=== PATIENT | male | born 1985 | race Caucasian/White ===

== ENCOUNTER → 2017-04-24 | Outpatient (CLI) | payer OTHER ==
[~2017-04-24] MED LIST: CLON0.5T3 PO
--- NOTE | 2017-04-24 12:26 | DIAGNOSTIC IMAGING REPORT ---
ABDOMEN COMPLETE (US) CLINICAL HISTORY: LLQ PAIN, NAUSEA, VOMITING COMPARISON STUDY: No previous studies for comparison. FINDINGS: The pancreas appears normal as visualized. The gallbladder appears sonographically normal. There is borderline increase in hepatic echogenicity. No focal hepatic masses are visualized. There is no intra or extrahepatic biliary ductal dilatation. The common buttock measures 5 mm. The right kidney measures 13 cm in length. The left kidney measures 16.6 cm in length. There is a possible duplex collecting system. The spleen is mildly enlarged measuring 13.7 cm. There is no evidence of abdominal aortic dilatation. IMPRESSION: 1. Borderline increase in hepatic echogenicity. No focal masses identified 2. Mild splenomegaly 3. Ultrasonographically normal gallbladder. No evidence of ductal dilatation 4. No renal masses identified. No evidence of hydronephrosis Electronically signed by: Srikanth Gong M.D. 04/24/2017 12:25 PM Dictated Date/Time: 04/24/2017 12:23 PM
--- NOTE | 2017-04-24 12:36 | DIAGNOSTIC IMAGING REPORT ---
LEFT INGUINAL ULTRASOUND CLINICAL HISTORY: LT GROIN HERNIA left inguinal pain COMPARISON STUDY: No previous studies for comparison. FINDINGS: There is no ultrasonographic evidence of a left inguinal hernia. No left inguinal masses are visualized. IMPRESSION: No ultrasonographic evidence of a left inguinal hernia. Electronically signed by: Srikanth Gong M.D. 04/24/2017 12:35 PM Dictated Date/Time: 04/24/2017 12:35 PM
== END | disposition home or self-care (01) ==
LOC: C.ULTRBC 11:21
PROVIDERS: ATTEND Physician Assistant Medical
DX: R11.2 Nausea with vomiting, unspecified (principal); R10.32 Left lower quadrant pain

== ENCOUNTER 2022-08-15 15:28 | Inpatient (IN) ==
--- NOTE | 2022-08-15 16:00 | Emergency Department Note ---
Impression & Plan Alcohol withdrawal, Opioid use disorder in remission, Transaminitis ED Provider Note NAME: JHOANA MORENO AGE: 36 SEX: M : 1985 ARRIVES VIA: Walk-In INFORMANT: Patient, ED PROVIDER(S): Cory Fan MD CHIEF COMPLAINT: Alcohol abuse, "I want help." MEDICAL DECISION MAKING: Patient did present for alcohol intoxication and wanted inpatient rehab. Patient did have blood work done and IV was established. The patient was loaded with Librium and a CIWA protocol was initiated to avoid withdrawal symptoms. Patient's blood work showed a normal white count H&H and platelet count kidney function is unremarkable. Mild elevation in BSG went away but not DKA. Urinalysis and urine drug screen negative. The patient's kidney function is unremarkable with normal electrolytes. Patient does have mild elevation in LFTs likely secondary to the patient's alcohol abuse but bilirubin is normal and patient has no abdominal pain. TSH normal. Salicylate Tylenol negative. The patient's alcohol is 363 COVID-negative. Lites with the on-call hospitalist service and spoke with the resident physician Dr. Kimbrough and the patient was admitted by Dr. Grullon. Prior /Outside records reviewed: none Differential diagnosis: Alcohol intoxication, toxicologic, infection, hypoglycemia, electrolyte abnormalities, cardiac sources, intracerebral event, neurologic, trauma, as well as other pathologies. Diagnostics, as interpreted by me: ECG: None Cardiac monitoring: An order was placed for continuous cardiac monitoring. The monitor shows a rate of 87 with sinus rhythm. Patient was placed on pulse oximetry Medical decision rules: None Imaging studies: See below HPI: Patient presents from home and states that he wants to stop drinking. The patient typically drinks as much as 1/5 of vodka daily and has done so for the last 2 weeks. The patient states that if he does develop withdrawal symptoms he will begin drinking again. Patient denies any chest pains or shortness of breath. The patient states that he does have an 8-year-old child and believes that he needs to improve his life and his decision making and would like inpatient rehab. Patient denies any SI, HI or AVH. The patient is currently not employed. Patient states that he sleeps too little and his appetite has been okay. PAST MEDICAL HISTORY: See Below PAST SURGICAL HISTORY: See Below SOCIAL HISTORY: See Below HOME MEDICATIONS: See Below ALLERGIES: See Below VITALS: See Below PHYSICAL EXAMINATION: GENERAL: NAD, wearing a mask, non-toxic. Clinically intoxicated. EYE EXAM: Normal conjunctiva. PERRL, no anisocoria and EOM's grossly intact w/o pain. NECK: Supple, no nuchal rigidity, no adenopathy, non-tender. No signs of meningismus. FROM of the neck with good chin to chest and neck extension. No stridor. LUNGS: Clear to auscultation. Normal chest wall mechanics. HEART: NSR, no MRG. ABDOMEN: Abdomen soft, non-tender, normo-active bowel sounds, no masses, no rebound or guarding. BACK: No CVA TTP. SKIN: No rashes and no bruising. UPPER EXTREMITIES: Upper extremities are grossly normal. LOWER EXTREMITIES: Grossly normal, no edema. NEURO EXAM: A&O x3, cranial nerves II-XII grossly intact, normal speech, moves all 4 extremities. Psych: Denies SI HI or AVH. Past Med/Surg History Medical History Complete tear, knee, anterior cruciate ligament (07/09/12) Surgical History S/P knee surgery S/P shoulder surgery Thelma teeth extracted Family History Mother Breast cancer Grandfather (Paternal) Colorectal cancer Denies family history of Ovarian cancer Prostate cancer Myocardial infarction Social History Smoking Status: Heavy tobacco smoker Tobacco Type: Cigarettes Second Hand Exposure: Yes; Do You Dip or Chew Tobacco: Yes; Tobacco Cessation Education Requested by Patient: No Hx Alcohol Use: Yes Alcohol type: hard liquor Hx Substance Use: No Preferred Language: Moldovan Communication Ability: Effective 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 Beliefs That Will Affect Care: None marital status: Current Living Situation: Family Current Living Situation Comment: Lives Girlfriend and 9 yo son current occupational status: unemployed Other Information That Helps Us Care for You: No Feels Safe at Home: Yes Safety Concerns: Feels Safe At This Time Childhood Exposure to Second-Hand Smoke: Yes Dental Care, Regularly: No Physical Activity Frequency: 3-4 Times per Week Seatbelt Use: always Sunscreen Use: No Assistive Devices: None Allergies Allergies Allergy/AdvReac Type Severity Reaction Status Date / Time No Known Allergies Allergy Unverified 04/20/21 08:54 Home Meds Home Medications Medication Instructions Recorded Confirmed Suboxone 2 mg PO BID 08/15/22 08/15/22 Results & Data (ED) Vital Signs Vital Signs - 24 hr 08/15/22 15:42 08/15/22 17:52 Temperature 37.0 C Temperature Source Temporal Artery Scan Pulse Rate 112 H Pulse Rate [Right] 89 Pulse Rhythm [Right] Regular Pulse Strength [Right] Normal Respiratory Rate 19 22 Respiratory Effort / Characteristics Non-Labored Spontaneous Respiratory Depth Normal Blood Pressure [Right Arm] 154/109 H Blood Pressure Mean [Right Arm] 124 Pulse Oximetry 96 97 Oxygen Delivery Method Room Air Sepsis Recent Fever Within 48 Hours No Sepsis New/Unexplained Change in Mental Status N/A Sepsis Action Taken by Nursing No Action Required Home Medications Current Medication List: was personally reviewed by me Laboratory Data Attestation: I reviewed the patient's lab results. 08/16/22 06:04 08/16/22 06:04 Lab Results 08/15/22 08/15/22 08/15/22 Range/Units 15:38 15:38 16:07 WBC 8.47 (4.8-10.8) K/ul RBC 5.36 (4.70-6.10) M/uL Hgb 16.9 (14.0-18.0) g/dl Hct 47.3 (42.0-52.0) % MCV 88.2 (80.0-100.0) fL MCH 31.5 (25.0-34.0) pg MCHC 35.7 (32.0-36.0) g/dL RDW Std Deviation 41.8 (36.4-46.3) fL RDW Coeff of Vanesa 13.0 (11.5-14.5) % Plt Count 268 (130-400) K/uL MPV 8.9 L (9.4-12.4) fL Immature Gran % (Auto) 0.4 % Neut % (Auto) 65.7 % Lymph % (Auto) 28.0 % Whitley % (Auto) 5.3 % Eos % (Auto) 0.0 % Baso % (Auto) 0.6 % Neut # (Auto) 5.57 (1.40-6.50) K/uL Lymph # (Auto) 2.37 (1.2-3.4) K/uL Whitley # (Auto) 0.45 (0.11-0.59) K/uL Eos # (Auto) 0.00 (0-0.50) K/uL Baso # (Auto) 0.05 (0-0.2) K/uL Immature Gran # (Auto) 0.03 (0.01-0.20) K/uL PT (9.0-12.0) Seconds INR (0.9-1.1) Sodium (136-145) mmol/L Potassium (3.5-5.1) mmol/L Chloride (98-107) mmol/L Carbon Dioxide (21-32) mmol/L Anion Gap (3-11) BUN (6-23) mg/dl Creatinine (0.6-1.4) mg/dl Est Cr Clr Drug Dosing ml/min Est GFR ( Amer) ml/min Est GFR (Non-Af Amer) ml/min BUN/Creatinine Ratio (10-20) Glucose (70-99(Fasting)) mg/dl Calcium (8.5-10.1) mg/dl Total Bilirubin (0.2-1.0) mg/dl AST (13-39) U/L ALT (7-52) U/L Alkaline Phosphatase (34-104) U/L Total Protein (6.0-8.3) gm/dl Albumin (3.4-5.0) gm/dl Globulin (2.5-4.0) gm/dl Albumin/Globulin Ratio (0.9-2) TSH (0.300-4.500) uIu/ml Urine Color Yellow Urine Appearance Clear (Clear) Urine pH 6.5 (4.5-7.5) Ur Specific Chambers 1.013 (1.000-1.030) Urine Protein 2+ H (Negative) Urine Glucose (UA) Negative (Negative) Urine Ketones Trace H (Negative) Urine Blood Trace H (Negative) Urine Nitrite Negative (Negative) Urine Bilirubin Negative (Negative) Urine Urobilinogen Negative (Negative) Ur Leukocyte Esterase Negative (Negative) Urine WBC (Auto) 1-5 (0-5) /hpf Urine RBC (Auto) 0-4 (0-4) /hpf U Hyaline Cast (Auto) 0 (0-5) /lpf U Epithel Cells (Auto) 5-10 H (0-5) /lpf Urine Bacteria (Auto) Negative (Negative) Salicylates (3.0-30) mg/dl Urine Opiates Screen Neg (Neg) Ur Methadone, Qual Neg (Neg) Acetaminophen (10-30) ug/ml Urine Barbiturates Neg (Neg) Ur Phencyclidine (PCP) Neg (Neg) U Amphetamin/Meth Scrn Neg (Neg) MDMA (Ecstasy) Screen Neg (Neg) U Benzodiazepines Scrn Neg (Neg) Ur Cocaine Metabolite Neg (Neg) U Marijuana (THC) Screen Neg (Neg) Ethyl Alcohol mg/dL (<10.0) mg/dl SARS-CoV-2, RNA, NAAT (NEGATIVE) 08/15/22 08/15/22 08/15/22 Range/Units 16:07 16:07 16:07 WBC (4.8-10.8) K/ul RBC (4.70-6.10) M/uL Hgb (14.0-18.0) g/dl Hct (42.0-52.0) % MCV (80.0-100.0) fL MCH (25.0-34.0) pg MCHC (32.0-36.0) g/dL RDW Std Deviation (36.4-46.3) fL RDW Coeff of Vanesa (11.5-14.5) % Plt Count (130-400) K/uL MPV (9.4-12.4) fL Immature Gran % (Auto) % Neut % (Auto) % Lymph % (Auto) % Whitley % (Auto) % Eos % (Auto) % Baso % (Auto) % Neut # (Auto) (1.40-6.50) K/uL Lymph # (Auto) (1.2-3.4) K/uL Whitley # (Auto) (0.11-0.59) K/uL Eos # (Auto) (0-0.50) K/uL Baso # (Auto) (0-0.2) K/uL Immature Gran # (Auto) (0.01-0.20) K/uL PT (9.0-12.0) Seconds INR (0.9-1.1) Sodium 140 (136-145) mmol/L Potassium 3.9 (3.5-5.1) mmol/L Chloride 102 (98-107) mmol/L Carbon Dioxide 28 (21-32) mmol/L Anion Gap 10 (3-11) BUN 10 (6-23) mg/dl Creatinine 0.94 (0.6-1.4) mg/dl Est Cr Clr Drug Dosing 160.2 ml/min Est GFR ( Amer) 118.7 ml/min Est GFR (Non-Af Amer) 102.4 ml/min BUN/Creatinine Ratio 10.6 (10-20) Glucose 129 H (70-99(Fasting)) mg/dl Calcium 8.7 (8.5-10.1) mg/dl Total Bilirubin 0.7 (0.2-1.0) mg/dl AST 151 H (13-39) U/L ALT 106 H (7-52) U/L Alkaline Phosphatase 132 H (34-104) U/L Total Protein 8.7 H (6.0-8.3) gm/dl Albumin 4.7 (3.4-5.0) gm/dl Globulin 4.0 (2.5-4.0) gm/dl Albumin/Globulin Ratio 1.2 (0.9-2) TSH 0.805 (0.300-4.500) uIu/ml Urine Color Urine Appearance (Clear) Urine pH (4.5-7.5) Ur Specific Chambers (1.000-1.030) Urine Protein (Negative) Urine Glucose (UA) (Negative) Urine Ketones (Negative) Urine Blood (Negative) Urine Nitrite (Negative) Urine Bilirubin (Negative) Urine Urobilinogen (Negative) Ur Leukocyte Esterase (Negative) Urine WBC (Auto) (0-5) /hpf Urine RBC (Auto) (0-4) /hpf U Hyaline Cast (Auto) (0-5) /lpf U Epithel Cells (Auto) (0-5) /lpf Urine Bacteria (Auto) (Negative) Salicylates < 3.0 L (3.0-30) mg/dl Urine Opiates Screen (Neg) Ur Methadone, Qual (Neg) Acetaminophen < 3 L (10-30) ug/ml Urine Barbiturates (Neg) Ur Phencyclidine (PCP) (Neg) U Amphetamin/Meth Scrn (Neg) MDMA (Ecstasy) Screen (Neg) U Benzodiazepines Scrn (Neg) Ur Cocaine Metabolite (Neg) U Marijuana (THC) Screen (Neg) Ethyl Alcohol mg/dL (<10.0) mg/dl SARS-CoV-2, RNA, NAAT (NEGATIVE) 08/15/22 08/15/22 08/15/22 Range/Units 16:07 16:07 16:28 WBC (4.8-10.8) K/ul RBC (4.70-6.10) M/uL Hgb (14.0-18.0) g/dl Hct (42.0-52.0) % MCV (80.0-100.0) fL MCH (25.0-34.0) pg MCHC (32.0-36.0) g/dL RDW Std Deviation (36.4-46.3) fL RDW Coeff of Vanesa (11.5-14.5) % Plt Count (130-400) K/uL MPV (9.4-12.4) fL Immature Gran % (Auto) % Neut % (Auto) % Lymph % (Auto) % Whitley % (Auto) % Eos % (Auto) % Baso % (Auto) % Neut # (Auto) (1.40-6.50) K/uL Lymph # (Auto) (1.2-3.4) K/uL Whitley # (Auto) (0.11-0.59) K/uL Eos # (Auto) (0-0.50) K/uL Baso # (Auto) (0-0.2) K/uL Immature Gran # (Auto) (0.01-0.20) K/uL PT 11.4 (9.0-12.0) Seconds INR 1.1 (0.9-1.1) Sodium (136-145) mmol/L Potassium (3.5-5.1) mmol/L Chloride (98-107) mmol/L Carbon Dioxide (21-32) mmol/L Anion Gap (3-11) BUN (6-23) mg/dl Creatinine (0.6-1.4) mg/dl Est Cr Clr Drug Dosing ml/min Est GFR ( Amer) ml/min Est GFR (Non-Af Amer) ml/min BUN/Creatinine Ratio (10-20) Glucose (70-99(Fasting)) mg/dl Calcium (8.5-10.1) mg/dl Total Bilirubin (0.2-1.0) mg/dl AST (13-39) U/L ALT (7-52) U/L Alkaline Phosphatase (34-104) U/L Total Protein (6.0-8.3) gm/dl Albumin (3.4-5.0) gm/dl Globulin (2.5-4.0) gm/dl Albumin/Globulin Ratio (0.9-2) TSH (0.300-4.500) uIu/ml Urine Color Urine Appearance (Clear) Urine pH (4.5-7.5) Ur Specific Chambers (1.000-1.030) Urine Protein (Negative) Urine Glucose (UA) (Negative) Urine Ketones (Negative) Urine Blood (Negative) Urine Nitrite (Negative) Urine Bilirubin (Negative) Urine Urobilinogen (Negative) Ur Leukocyte Esterase (Negative) Urine WBC (Auto) (0-5) /hpf Urine RBC (Auto) (0-4) /hpf U Hyaline Cast (Auto) (0-5) /lpf U Epithel Cells (Auto) (0-5) /lpf Urine Bacteria (Auto) (Negative) Salicylates (3.0-30) mg/dl Urine Opiates Screen (Neg) Ur Methadone, Qual (Neg) Acetaminophen (10-30) ug/ml Urine Barbiturates (Neg) Ur Phencyclidine (PCP) (Neg) U Amphetamin/Meth Scrn (Neg) MDMA (Ecstasy) Screen (Neg) U Benzodiazepines Scrn (Neg) Ur Cocaine Metabolite (Neg) U Marijuana (THC) Screen (Neg) Ethyl Alcohol mg/dL 363.0 H (<10.0) mg/dl SARS-CoV-2, RNA, NAAT NEGATIVE (NEGATIVE) Administered Medications Buprenorphine/Naloxone (Buprenorphine/Naloxone 8/2 Mg Tab) 0.25 tab SL BID YANNA Stop: 09/14/22 21:29 Last Admin: 08/16/22 08:10 Dose: 0.25 tab Documented By: Admin: 08/15/22 22:02 Dose: 0.25 tab Documented By: CJC Chlordiazepoxide HCl (Chlordiazepoxide Hcl 25 Mg Cap) 50 mg PO Q6H YANNA; Taper Stop: 08/19/22 11:59 Last Admin: 08/16/22 12:18 Dose: 50 mg Documented By: CEASAR Folic Acid 1 mg/ Syringe 10 mls @ 5 mls/min IV QAM YANNA Stop: 09/15/22 08:59 Last Admin: 08/16/22 08:03 Dose: 5 mls/min Documented By: CEASAR Pantoprazole Sodium 40 mg/ (Syringe) 10 mls @ 5 mls/min IV DAILY@1100 YANNA Stop: 09/15/22 10:59 Last Admin: 08/16/22 11:27 Dose: 5 mls/min Documented By: CEASAR Thiamine HCl 200 mg/ Sodium (Chloride) 52 mls @ 210 mls/hr IV QAM [facility] Stop: 09/15/22 08:59 Last Infusion: 08/16/22 08:55 Dose: 0 mls/hr Documented By: Admin: 08/16/22 08:13 Dose: 210 mls/hr Documented By: CEASAR Lorazepam (Lorazepam 2 Mg/1 Ml Vial) 2 mg IV UD PRN; Protocol PRN Reason: EtOH Withdrawal AWSS Score 8,9 Stop: 09/14/22 16:16 Last Admin: 08/16/22 08:00 Dose: 2 mg Documented By: Admin: 08/16/22 05:40 Dose: 2 mg Documented By: [facility] Admin: 08/16/22 03:06 Dose: 2 mg Documented By: [facility] Admin: 08/16/22 01:53 Dose: 2 mg Documented By: [facility] Admin: 08/16/22 00:42 Dose: 2 mg Documented By: [facility] Admin: 08/15/22 23:30 Dose: 2 mg Documented By: [facility] Admin: 08/15/22 22:14 Dose: 2 mg Documented By: [facility] Admin: 08/15/22 20:55 Dose: 2 mg Documented By: TREVOR Lorazepam (Lorazepam 2 Mg/1 Ml Vial) 1 mg IV UD PRN; Protocol PRN Reason: EtOH Withdrawal AWSS Score 6,7 Stop: 09/14/22 16:16 Last Admin: 08/16/22 11:27 Dose: 1 mg Documented By: Admin: 08/16/22 09:02 Dose: 1 mg Documented By: Admin: 08/15/22 17:26 Dose: 1 mg Documented By: AM Miscellaneous (Remove Nicoderm Patch) 1 each N/A DAILY@0859 [facility] Stop: 09/15/22 08:58 Last Admin: 08/16/22 08:13 Dose: 1 each Documented By: CEASAR Nicotine (Nicotine 7 Mg/24 Hr Tdsy) 7 mg TD QAM [facility] Stop: 09/14/22 19:26 Last Admin: 08/16/22 08:03 Dose: 7 mg Documented By: Admin: 08/15/22 20:09 Dose: 7 mg Documented By: SELENA Ondansetron HCl (Ondansetron Inj 2 Mg/Ml 2 Ml Vial) 4 mg IV Q6H PRN PRN Reason: Nausea And Vomiting Stop: 09/15/22 05:05 Last Admin: 08/16/22 05:40 Dose: 4 mg Documented By: TREVOR Discontinued Medications Chlordiazepoxide HCl (Chlordiazepoxide Hcl 25 Mg Cap) 50 mg PO NOW ONE Stop: 08/15/22 16:18 Last Admin: 08/15/22 16:43 Dose: 50 mg Documented By: AM Multivitamins 10 ml/ Thiamine HCl 100 mg/ Folic Acid 1 mg/Sodium Chloride 1,011.2 mls @ 500 mls/hr IV .Q2H2M ONE Stop: 08/15/22 18:18 Last Infusion: 08/15/22 19:04 Dose: 0 mls/hr Documented By: Admin: 08/15/22 16:43 Dose: 500 mls/hr Documented By: AM Lactated Ringer's (Lr) 1,000 mls @ 125 mls/hr IV .Q8H [facility] Stop: 08/16/22 11:26 Last Admin: 08/16/22 04:29 Dose: 125 mls/hr Documented By: Infusion: 08/16/22 04:11 Dose: 125 mls/hr Documented By: Admin: 08/15/22 20:11 Dose: 125 mls/hr Documented By: SELENA Prochlorperazine 5 mg/ Syringe 5 mls @ 5 mls/min IV ONE ONE Stop: 08/16/22 09:16 Last Admin: 08/16/22 10:22 Dose: 5 mls/min Documented By: CEASAR Lorazepam (Lorazepam 2 Mg/1 Ml Vial) 1 mg IV ONE PRN; Protocol PRN Reason: EtoH Withdrawal AWSS 6,7,8,9,10 Last Admin: 08/15/22 19:30 Dose: 1 mg Documented By: SELENA Discharge Plan Visit Data Chief Complaint: Mental Health Evaluation Stated Complaint: MENTAL EVALUATION ED Provider: Cory Fan Discharge Problem: Alcohol withdrawal, Opioid use disorder in remission, Transaminitis Patient Disposition: Admitted As Inpatient Discharge Instructions Interventions: ED Discharge Assessment Last Done: 08/15/22 19:27
[2022-08-15] MEDS ORDERED: LORazepam 2 MG/1 ML VIAL IV PRN ×2 (16:17)
[2022-08-15] MEDS ORDERED: Ativan IV Alcohol Withdrawal--Active Protocol IV PRN (16:17)
[2022-08-15] MEDS ORDERED: MULTI-VITAMIN INFUSION 10 ML, THIAMINE HCL 100 MG, FOLIC ACID 1 MG in SODIUM CHLORIDE 0... IV ONE (16:17)
[2022-08-15] MEDS ORDERED: chlordiazePOXIDE HCl 25 MG CAP PO ONE (16:17)
[2022-08-15 16:31] LABS: Appearance Urine Clear (Clear); Bacteria Urine Automated Negative (Negative); Bilirubin Urine Negative (Negative); Blood Urine Trace (Negative); Cast Urine Automated 0 /lpf (0-5); Color Urine Yellow; Glucose Urine UA Negative (Negative); Ketones Urine Trace (Negative); Leukocyte Esterase Urine Negative (Negative); Nitrite Urine Negative (Negative); Protein Urine 2+ (Negative); RBC Urine Automated 0-4 /hpf (0-4); Specific Gravity Urine 1.013 (1.000-1.030); Urobilinogen Urine Negative (Negative); pH Urine 6.5 (4.5-7.5)
[2022-08-15 16:41] LABS: Basophils # (auto) 0.05 K/uL (0-0.2); Basophils % (auto) 0.6 %; Hematocrit (blood only) 47.3 % (42.0-52.0); Hemoglobin 16.9 g/dl (14.0-18.0); Immature Granulocytes # (auto) 0.03 K/uL (0.01-0.20); Immature Granulocytes % (auto) 0.4 %; Lymphocytes # (auto) 2.37 K/uL (1.2-3.4); Mean Corpuscular Hemoglobin 31.5 pg (25.0-34.0); Mean Corpuscular Hgb Conc 35.7 g/dL (32.0-36.0); Mean Corpuscular Volume 88.2 fL (80.0-100.0); Mean Platelet Volume 8.9 fL (9.4-12.4); Monocytes # (auto) 0.45 K/uL (0.11-0.59); Monocytes % (auto) 5.3 %; Neutrophils # (auto) 5.57 K/uL (1.40-6.50); Neutrophils % (auto) 65.7 %; Platelet Count 268 K/uL (130-400); RDW Standard Deviation 41.8 fL (36.4-46.3); Red Blood Count 5.36 M/uL (4.70-6.10); White Blood Count 8.47 K/ul (4.8-10.8)
[2022-08-15 16:55] LABS: Acetaminophen < 3 ug/ml (10-30); Salicylate < 3.0 mg/dl (3.0-30)
[2022-08-15 16:58] LABS: Albumin Globulin Ratio 1.2 (0.9-2); Albumin Level 4.7 gm/dl (3.4-5.0); BUN Creatinine Ratio 10.6 (10-20); Bilirubin,Total 0.7 mg/dl (0.2-1.0); Calcium 8.7 mg/dl (8.5-10.1); Creatinine Clr Calc Pharmacy 160.2 ml/min; Est GFR (African American) 118.7 ml/min; Est GFR (Non-African American) 102.4 ml/min; Potassium 3.9 mmol/L (3.5-5.1); Total Protein 8.7 gm/dl (6.0-8.3)
[2022-08-15 17:08] LABS: Amphetamines+Metham, Urine Neg (Neg); Barbiturates, Urine Neg (Neg); Benzodiazepine, Urine Neg (Neg); Cocaine, Urine Neg (Neg); MDMA (Ecstacy), Urine Neg (Neg); Methadone, Urine Neg (Neg); Opiate, Urine Neg (Neg); Phencyclidine, Urine Neg (Neg)
[2022-08-15] MEDS: LORazepam 2 MG/1 ML VIAL IV PRN ×4 (17:26→23:30)
--- NOTE | 2022-08-15 18:10 | History & Physical Report ---
Date of Service August 15, 2022 Assessment & Plan (1) Alcohol withdrawal: Plan: This is a 36-year-old male with prior history of OUD on Suboxone (2mg qAM/qPM) and self-reported history of anxiety/depression who presents to [facility] for disordered alcohol use and anticipated management of alcohol withdrawal. His last drink was ~1200 on 08/15/22. Alcohol Use Disorder - Risk for Alcohol Withdrawal -- Last drink on 08/15 at 1200 Reportedly new history in the context of significant life stressors, has not withdrawn before Reported consuming approximately 750 cc of vodka daily x 1 mo. Denies persisten t alcohol use prior, denies alcohol withdrawal history Lorazepam IV UD per AWSS protocol Hold on scheduling agents Lactated Ringer's x 2 L Folate and thiamine scheduled Protonix 40mg daily Appreciate case management assistance once acute issues have stabilized -- at time of admission, patient NOT interested in inpatient rehab Consider initiating acamprosate pending further patient conversation - noted that pt is on Suboxone Consider psychiatric consult / initiation of depression/anxiety treatment once acute issues have stabilized (2) Transaminitis: Plan: Transaminitis -- suspect mild alcoholic hepatitis No reported history of liver disease Ethyl alcohol 363 on arrival ; LFTs AST 151 / ALT 106 / ALP 132 / Alb 4.7 / INR 1.1 / TBili 0.7 ; Others- Na 140 / Plt 268 / MCV 88.2 -- Maddrey Score: 4.8 (good prognosis); hold on steroids -- Benign abdominal exam Continue IVF Monitor on daily labs If no improvement- US and serologies to evaluate for secondary causes (3) Opioid use disorder in remission: Plan: Opioid use disorder in remission Reportedly no use within the last 10 years Suboxone 8/2mg 1 tab daily RX'd by Dr. Ted Martinez per External RX history- however, patient reports taking 0.25mg tab b.i.d. (0.5 tab total daily) - entered as patient describes, will req outpatient f/u (4) Tobacco abuse: Plan: Tobacco use Consumes approximately 1 pack/day cigarettes Nicotine patch Plan Code: Full Dispo: MST initially, transition to MS when appropriate Prophylaxis: SCDs Diet: Regular as tolerated History of Present Illness Primary Care Provider: NO PCP This is a 36-year-old male with prior history of OUD on Suboxone (2mg qAM/qPM) who presents to [facility] for disordered alcohol use and management of alcohol withdrawal. Patient says that approximately 1 month ago, his mother was on life support at [facility]. This caused significant emotional trauma to him and his family. Since this time, he reports consuming about 750 cc of vodka daily X 1 month. He has still been able to eat and drink okay. Over the last several days, he has reflected significantly on his life and the recent trauma his family went throughas well as his 8-year-old son, who he cares deeply forand he reports wanting to do the right thing and to get help for his alcohol use. On the day of admission, he reports consuming about 375 cc, with last drink being around noon. He says prior to this time, he never had a persistent issue with alcohol use. He would use it socially, but not on a regular basis or to the volume that he is doing now. He does endorse a prior history of opioid use disorder for which she is taking Suboxone 2 mg twice dailyhe denies any use within the last 10 years. He denies any use of any other substances. He does report using approximately 1 pack/day of cigarettes. He denies any long-term medical issues. He does say, however, he has personally struggled with anxiety and depressionalthough he has never formally talked a bout this with a medical professional. He believes that these are somewhat related, in conjunction with his mother's ailments, as to why he started drinking. In the ED, patient was found to be tachycardic to 112 and hypertensive to 150/100 with normal temperature, respiratory rate 22. Admission labs reveal platelet count 268, sodium 140, BUN 10/creatinine 0.94, blood sugar 129, AST 151, ALT 106, ALP 132. Urine demonstrated trace ketones. UDS demonstrated blood alcohol level 363. He was given Librium 50 mg and lorazepam. ---- This documentation was created utilizing dictation software. As such, syntax, grammatical, and word-choice errors may be present. Notes are screened prior to submission in an attempt to reduce these errors. If there are any questions or concerns, please contact the author directly for clarification. Allergies Allergy/AdvReac Type Severity Reaction Status Date / Time No Known Allergies Allergy Unverified 04/20/21 08:54 Home Medications Medication Instructions Recorded Confirmed Type Suboxone 2 mg PO BID 08/15/22 08/15/22 History Past Med/Surg History Medical History Complete tear, knee, anterior cruciate ligament (07/09/12) Surgical History S/P knee surgery S/P shoulder surgery [place] teeth extracted Family History Mother Breast cancer Grandfather (Paternal) Colorectal cancer Denies family history of Ovarian cancer Prostate cancer Myocardial infarction Social History Smoking Status: Current every day smoker Tobacco Type: Cigarettes Second Hand Exposure: No; Hx Alcohol Use: Yes Hx Substance Use: Yes Preferred Language: Welsh marital status: current occupational status: unemployed Feels Safe at Home: Yes Childhood Exposure to Second-Hand Smoke: Yes Dental Care, Regularly: No Physical Activity Frequency: 3-4 Times per Week Seatbelt Use: always Sunscreen Use: No Review of Systems Review of Systems: as per HPI Physical Exam Physical Exam: General: 36-year old male who is alert, oriented, and is mild distress while discussing. HEENT: NCAT. - Eyes - Sclera are white, anicteric, and without injection. - Mouth - MMM - Neck - supple, no appreciable JVD Cardiac: Normal rate and regular rhythm; S1 and S2 present with no murmurs, rubs, or gallops. Pulmonary: Good respiratory effort with symmetric expansion of the chest. No use of accessory muscles. Lungs were clear to auscultation bilaterally with no crackles or wheezes. Abdominal: Normoactive bowel sounds. Abdomen was soft, nondistended, and non- tender to palpation. Queen's negative. Extremities: Upper and lower extremities are warm and well perfused. No peripheral edema in the lower extremities bilaterally Psych: Well-developed, well-nourished, appropriately dressed for occasion. Behavior is cooperative and appropriate. Mood is "really not good and I want to do the right thing." Affect is consistent with mood. Insight seems appropriate to the current situation. Denies SI. Results & Data Results & Data ([facility]) Vital Signs (Past 12 Hours) Vital Signs Temp Pulse Pulse Resp BP Pulse Ox O2 Del Method 08/15/22 17:52 89 22 154/109 H 97 08/15/22 15:42 37.0 C 112 H 19 96 Room Air Resident Activity Tracking Resident Involvement: Resident Care Provided Care Provided: Adult Hospital Medicine
[2022-08-15 18:44] LABS: INR 1.1 (0.9-1.1); Prothrombin Time 11.4 Seconds (9.0-12.0)
[2022-08-15] MEDS: NICOTINE 7 MG/24 HR TDSY TD SCH (20:09)
[2022-08-15] MEDS: LACTATED RINGER'S 1,000 ML IV SCH (20:11)
[2022-08-15] MEDS ORDERED: BUPRENORPHINE/NALOXONE 8/2 MG TAB SL SCH (21:20)
[2022-08-15] MEDS: BUPRENORPHINE/NALOXONE 8/2 MG TAB SL SCH (22:02)
--- NOTE | 2022-08-16 00:34 | Billing Data ---
Date of Service August 15, 2022 Coding Level of Care Code 21008 INT INP/OBS CARE
[2022-08-16] MEDS: LORazepam 2 MG/1 ML VIAL IV PRN ×9 (00:42→20:08)
[2022-08-16] MEDS: LACTATED RINGER'S 1,000 ML IV SCH (04:29)
[2022-08-16] MEDS: ONDANSETRON INJ 2 MG/ML 2 ML VIAL IV PRN (05:40)
[2022-08-16 06:23] LABS: Basophils # (auto) 0.02 K/uL (0-0.2); Basophils % (auto) 0.3 %; Eosinophils # (auto) 0.02 K/uL (0-0.50); Eosinophils % (auto) 0.3 %; Hematocrit (blood only) 42.1 % (42.0-52.0); Immature Granulocytes # (auto) 0.03 K/uL (0.01-0.20); Immature Granulocytes % (auto) 0.4 %; Lymphocytes # (auto) 2.03 K/uL (1.2-3.4); Lymphocytes % (auto) 27.8 %; Mean Corpuscular Hemoglobin 31.8 pg (25.0-34.0); Mean Corpuscular Hgb Conc 35.6 g/dL (32.0-36.0); Mean Corpuscular Volume 89.4 fL (80.0-100.0); Mean Platelet Volume 8.9 fL (9.4-12.4); Monocytes # (auto) 0.71 K/uL (0.11-0.59); Monocytes % (auto) 9.7 %; Neutrophils # (auto) 4.48 K/uL (1.40-6.50); Neutrophils % (auto) 61.5 %; Platelet Count 180 K/uL (130-400); RDW Coefficient of Variation 12.7 % (11.5-14.5); RDW Standard Deviation 41.5 fL (36.4-46.3); Red Blood Count 4.71 M/uL (4.70-6.10); White Blood Count 7.29 K/ul (4.8-10.8)
[2022-08-16] MEDS: FOLIC ACID 1 MG in SYRINGE 9.8 ML IV SCH (08:03)
[2022-08-16] MEDS: NICOTINE 7 MG/24 HR TDSY TD SCH (08:03)
[2022-08-16] MEDS: BUPRENORPHINE/NALOXONE 8/2 MG TAB SL SCH ×2 (08:10→21:53)
[2022-08-16] MEDS: THIAMINE HCL 200 MG in SODIUM CHLORIDE 0.9% 50 ML IV SCH (08:13)
[2022-08-16 08:14] LABS: Albumin Globulin Ratio 1.2 (0.9-2); BUN Creatinine Ratio 12.2 (10-20); Bilirubin,Total 0.9 mg/dl (0.2-1.0); Calcium 8.2 mg/dl (8.5-10.1); Est GFR (Non-African American) 112.2 ml/min; Globulin 3.3 gm/dl (2.5-4.0); Potassium 3.7 mmol/L (3.5-5.1); Total Protein 7.3 gm/dl (6.0-8.3)
[2022-08-16] MEDS ORDERED: THIAMINE HCL 200 MG in SYRINGE 9 ML IV SCH (09:00)
[2022-08-16] MEDS ORDERED: PROCHLORPERAZINE 5 MG in SYRINGE 4 ML IV ONE (09:15)
[2022-08-16] MEDS: PANTOprazole 40 MG in SYRINGE 0 ML IV SCH (11:27)
[2022-08-16] MEDS ORDERED: chlordiazePOXIDE ALCOHOL WITHDRAWL 50MG PO STA (11:59)
[2022-08-16] MEDS: chlordiazePOXIDE HCl 25 MG CAP PO SCH ×3 (12:18→23:50)
[2022-08-16] MEDS ORDERED: LORazepam 2 MG/1 ML VIAL IV STA (17:14)
--- NOTE | 2022-08-16 22:40 | Hospitalist Progress Note ---
Date of Service August 16, 2022 Assessment & Plan (1) Alcohol withdrawal: Plan: Patient admitted for alcohol withdrawal. Patient is interested in quitting alcohol. Patient currently scoring high on AWSS. Will order librium taper and will monitor. (2) Opioid use disorder in remission: Plan: Opioid use disorder in remission Reportedly no use within the last 10 years Suboxone 8/2mg 1 tab daily RX'd by Dr. Ted Martinez per External RX history- however, patient reports taking 0.25mg tab b.i.d. (0.5 tab total daily) - entered as patient describes, will req outpatient f/u (4) Tobacco abuse: (3) Tobacco abuse: Plan: ordered nicotine patch (4) Transaminitis: Plan: suspect mild alcoholic hepatitis No reported history of liver disease Ethyl alcohol 363 on arrival ; LFTs AST 151 / ALT 106 / ALP 132 / Alb 4.7 / INR 1.1 / TBili 0.7 ; Others- Na 140 / Plt 268 / MCV 88.2 -- Maddrey Score: 4.8 (good prognosis); hold on steroids -- Benign abdominal exam Continue IVF Monitor on daily labs If no improvement- US and serologies to evaluate for secondary causes Admission and Anticipated Discharge Date Admission Date: August 15, 2022 Subjective Patient reports feeling anxious. No hallucinations Review of Systems Review of Systems: All systems reviewed & are unremarkable except as noted in HPI & below Physical Exam Physical Exam: General: 36-year old male appears mildly anxious HEENT: NCAT. - Eyes - Sclera are white, anicteric, and without injection. - Mouth - MMM - Neck - supple, no appreciable JVD Cardiac: Normal rate and regular rhythm; S1 and S2 present with no murmurs, rubs, or gallops. Pulmonary: Good respiratory effort with symmetric expansion of the chest. No use of accessory muscles. Lungs were clear to auscultation bilaterally with no crackles or wheezes. Abdominal: Normoactive bowel sounds. Abdomen was soft, nondistended, and non- tender to palpation. Queen's negative. Extremities: Upper and lower extremities are warm and well perfused. No peripheral edema in the lower extremities bilaterally Psych: Well-developed, well-nourished, appropriately dressed for occasion. Behavior is cooperative and appropriate. Results & Data Results & Data ([facility]) Vital Signs (Past 12 Hours) Vital Signs Temp Pulse Pulse Resp BP BP Pulse Ox 02/15/23 22:01 36.4 C L 106 H 18 166/91 H 95 08/16/22 19:51 36.4 C L 96 H 16 141/103 H 94 08/16/22 17:25 36.7 C 117 H 18 149/109 H 92 08/16/22 14:20 101 H 08/16/22 15:14 36.7 C 100 H 18 157/105 H 95 08/16/22 14:13 36.6 C 98 H 18 159/96 H 93 08/16/22 11:23 36.6 C 105 H 18 156/85 H 90 O2 Del Method 08/16/22 22:01 Room Air 08/16/22 19:51 Room Air 08/16/22 17:25 Room Air 08/16/22 14:20 08/16/22 15:14 Room Air 08/16/22 14:13 Room Air 08/16/22 11:23 Room Air PG Care Time/CCT Total # of Minutes Spent Total Time Spent with Patient: Total time spent is greater than 50% in coordination of care (as documented) at patient's floor/unit and/or counseling patient: Coding Level of Care Code 89091 SUB INP/OBS CARE 3/50MIN Diagnoses Alcohol withdrawal F10.930 Complication of substance-induced condition: uncomplicated Opioid use disorder in remission F11.91 Tobacco abuse Z72.0 Transaminitis R74.01 (1) Alcohol withdrawal Complication of substance-induced condition: uncomplicated Qualified Code(s): F10.930 - Alcohol use, unspecified with withdrawal, uncomplicated
[2022-08-17] MEDS: LORazepam 2 MG/1 ML VIAL IV PRN ×9 (00:20→23:43)
[2022-08-17] MEDS: chlordiazePOXIDE HCl 25 MG CAP PO SCH ×3 (05:21→19:32)
[2022-08-17] MEDS: PANTOprazole 40 MG in SYRINGE 0 ML IV SCH (07:37)
[2022-08-17] MEDS: FOLIC ACID 1 MG in SYRINGE 9.8 ML IV SCH (07:37)
[2022-08-17] MEDS: THIAMINE HCL 200 MG in SODIUM CHLORIDE 0.9% 50 ML IV SCH (07:37)
[2022-08-17] MEDS: NICOTINE 7 MG/24 HR TDSY TD SCH (07:37)
[2022-08-17] MEDS: BUPRENORPHINE/NALOXONE 8/2 MG TAB SL SCH ×2 (07:49→20:42)
[2022-08-17] MEDS ORDERED: LORazepam 2 MG/1 ML VIAL IV STA (18:37)
--- NOTE | 2022-08-17 21:24 | Hospitalist Progress Note ---
Date of Service August 17, 2022 Assessment & Plan (1) Alcohol withdrawal: Plan: Patient admitted for alcohol withdrawal. Patient is interested in quitting alcohol. Patient currently scoring high on AWSS. On librium taper which was started on 08/16 Patinet has required intermittent dosing of ativan (2) Opioid use disorder in remission: Plan: Opioid use disorder in remission Reportedly no use within the last 10 years Suboxone 8/2mg 1 tab daily RX'd by Dr. Ted Martinez per External RX history- however, patient reports taking 0.25mg tab b.i.d. (0.5 tab total daily) - entered as patient describes, will req outpatient f/u (3) Tobacco abuse: Plan: ordered nicotine patch increased dose for 07/18 to 21 mg (4) Transaminitis: Plan: suspect mild alcoholic hepatitis No reported history of liver disease Ethyl alcohol 363 on arrival ; LFTs AST 151 / ALT 106 / ALP 132 / Alb 4.7 / INR 1.1 / TBili 0.7 ; Others- Na 140 / Plt 268 / MCV 88.2 -- Maddrey Score: 4.8 (good prognosis); hold on steroids -- Benign abdominal exam Continue IVF Monitor on daily labs If no improvement- US and serologies to evaluate for secondary causes Admission and Anticipated Discharge Date Admission Date: August 15, 2022 Subjective 36 yo male reports having anxiety. Earlier in the day, patient left his room to smoke. Patient agreed to try a larger dose of a nicotine patch once asked. Patient is also worried about his mother who is coming to the hospital via ambulance as she is sick Review of Systems Review of Systems: All systems reviewed & are unremarkable except as noted in HPI & below Physical Exam Physical Exam: General: 36-year old male appears mildly anxious HEENT: NCAT. - Eyes - Sclera are white, anicteric, and without injection. - Mouth - MMM - Neck - supple, no appreciable JVD Cardiac: Normal rate and regular rhythm; S1 and S2 present with no murmurs, rubs, or gallops. Pulmonary: Good respiratory effort with symmetric expansion of the chest. No use of accessory muscles. Lungs were clear to auscultation bilaterally with no crackles or wheezes. Abdominal: Normoactive bowel sounds. Abdomen was soft, nondistended, and non- tender to palpation. Queen's negative. Extremities: Upper and lower extremities are warm and well perfused. No peripheral edema in the lower extremities bilaterally Psych: Well-developed, well-nourished, appropriately dressed for occasion. Behavior is cooperative and appropriate. Results & Data Results & Data ([facility]) Vital Signs (Past 12 Hours) Vital Signs Temp Pulse Pulse Resp BP BP Pulse Ox 08/17/22 20:39 36.5 C 101 H 20 159/100 H 95 08/17/22 18:29 36.6 C 120 H 24 161/102 H 94 08/17/22 17:15 174/83 H 08/17/22 16:57 36.7 C 101 H 20 201/102 H 93 08/17/22 15:45 109 H 08/17/22 13:30 36.6 C 109 H 18 147/92 H 93 08/17/22 10:13 91 H O2 Del Method 08/17/22 20:39 Room Air 08/17/22 18:29 Room Air 08/17/22 17:15 08/17/22 16:57 Room Air 08/17/22 15:45 08/17/22 13:30 Room Air 08/17/22 10:13 PG Care Time/CCT Total # of Minutes Spent Total Time Spent with Patient: Total time spent is greater than 50% in coordination of care (as documented) at patient's floor/unit and/or counseling patient: Coding Level of Care Code 37236 SUB INP/OBS CARE 3/50MIN Diagnoses Alcohol withdrawal F10.930 Complication of substance-induced condition: uncomplicated Opioid use disorder in remission F11.91 Tobacco abuse Z72.0 Transaminitis R74.01 (1) Alcohol withdrawal Complication of substance-induced condition: uncomplicated Qualified Code(s): F10.930 - Alcohol use, unspecified with withdrawal, uncomplicated
[2022-08-18] MEDS: ONDANSETRON INJ 2 MG/ML 2 ML VIAL IV PRN (04:26)
[2022-08-18] MEDS: chlordiazePOXIDE HCl 25 MG CAP PO SCH ×3 (04:26→21:22)
--- NOTE | 2022-08-18 07:37 | Hospitalist Progress Note ---
Date of Service August 17, 2022 Assessment & Plan (1) Alcohol withdrawal: Plan: Patient admitted for alcohol withdrawal. Patient is interested in quitting alcohol. Patient currently scoring high on AWSS. On librium taper which was started on 08/16 Patinet has required intermittent dosing of ativan (2) Opioid use disorder in remission: Plan: Opioid use disorder in remission Opioid dependence Reportedly no use within the last 10 years Suboxone 8/2mg 1 tab daily RX'd by Dr. Ted Martinez per External RX history- however, patient reports taking 0.25mg tab b.i.d. (0.5 tab total daily) - entered as patient describes, will req outpatient f/u (3) Tobacco abuse: Plan: ordered nicotine patch increased dose for 07/18 to 21 mg (4) Transaminitis: Plan: suspect mild alcoholic hepatitis No reported history of liver disease Ethyl alcohol 363 on arrival ; LFTs AST 151 / ALT 106 / ALP 132 / Alb 4.7 / INR 1.1 / TBili 0.7 ; Others- Na 140 / Plt 268 / MCV 88.2 -- Maddrey Score: 4.8 (good prognosis); hold on steroids -- Benign abdominal exam Continue IVF Monitor on daily labs If no improvement- US and serologies to evaluate for secondary causes (5) Obesities, morbid: Plan: Obesity, BMI 40.4 kg/m*m BMI is 40.4 kg/m*m Risk Factor(s): Caloric intake > expenditure Treatment: I/O, daily weights defer life style changes to PCP Admission and Anticipated Discharge Date Admission Date: August 15, 2022 Subjective 36 yo male reports having anxiety. Earlier in the day, patient left his room to smoke. Patient agreed to try a larger dose of a nicotine patch once asked. Patient is also worried about his mother who is coming to the hospital via ambulance as she is sick Review of Systems Review of Systems: All systems reviewed & are unremarkable except as noted in HPI & below Physical Exam Physical Exam: General: 36-year old male appears mildly anxious HEENT: NCAT. - Eyes - Sclera are white, anicteric, and without injection. - Mouth - MMM - Neck - supple, no appreciable JVD Cardiac: Normal rate and regular rhythm; S1 and S2 present with no murmurs, rubs , or gallops. Pulmonary: Good respiratory effort with symmetric expansion of the chest. No use of accessory muscles. Lungs were clear to auscultation bilaterally with no crac kles or wheezes. Abdominal: Normoactive bowel sounds. Abdomen was soft, nondistended, and non- tender to palpation. Queen's negative. Extremities: Upper and lower extremities are warm and well perfused. No peripheral edema in the lower extremities bilaterally Psych: Well-developed, well-nourished, appropriately dressed for occasion. Behavior is cooperative and appropriate. Results & Data Results & Data ([facility]) Vital Signs (Past 12 Hours) Vital Signs Temp Pulse Pulse Resp BP BP Pulse Ox 08/18/22 07:19 36.7 C 92 H 20 148/93 H 97 08/17/22 22:12 109 H 08/18/22 04:16 36.7 C 97 H 16 134/96 94 08/18/22 01:46 36.6 C 94 H 18 141/110 H 98 08/17/22 23:27 36.5 C 107 H 18 142/101 H 94 08/17/22 20:39 36.5 C 101 H 20 159/100 H 95 O2 Del Method 08/18/22 07:19 Room Air 08/17/22 22:12 08/18/22 04:16 Room Air 08/18/22 01:46 Room Air 08/17/22 23:27 Room Air 08/17/22 20:39 Room Air PG Care Time/CCT Total # of Minutes Spent Total Time Spent with Patient: Total time spent is greater than 50% in coordination of care (as documented) at patient's floor/unit and/or counseling patient: Coding Level of Care Code 18290 SUB INP/OBS CARE 3/50MIN Diagnoses Alcohol withdrawal F10.930 Complication of substance-induced condition: uncomplicated Opioid use disorder in remission F11.91 Tobacco abuse Z72.0 Transaminitis R74.01 Obesities, morbid E66.01 (1) Alcohol withdrawal Complication of substance-induced condition: uncomplicated Qualified Code(s): F10.930 - Alcohol use, unspecified with withdrawal, uncomplicated
[2022-08-18] MEDS: FOLIC ACID 1 MG in SYRINGE 9.8 ML IV SCH (08:17)
[2022-08-18] MEDS: NICOTINE 21 MG/24 HR TDSY TD SCH (08:17)
[2022-08-18] MEDS: BUPRENORPHINE/NALOXONE 8/2 MG TAB SL SCH ×2 (08:28→21:22)
[2022-08-18] MEDS: THIAMINE HCL 200 MG in SODIUM CHLORIDE 0.9% 50 ML IV SCH (08:28)
[2022-08-18] MEDS: LORazepam 2 MG/1 ML VIAL IV PRN ×3 (08:52→21:41)
[2022-08-18] MEDS: PANTOprazole 40 MG in SYRINGE 0 ML IV SCH (11:21)
[2022-08-18] MEDS ORDERED: ACETAMINOPHEN 325 MG TAB PO PRN (21:56)
--- NOTE | 2022-08-19 00:34 | Hospitalist Progress Note ---
Date of Service August 18, 2022 Assessment & Plan (1) Alcohol withdrawal: Plan: Patient admitted for alcohol withdrawal. Patient is interested in quitting alcohol. Patient currently scoring high on AWSS. On librium taper which was started on 08/16 Patinet has required intermittent dosing of ativan 08/18-patient is presently on CIWA protocol Discussed with case management regarding options for patient's follow-up once he is discharged Patient was offered support from counseling regarding his anxiety symptoms and psychiatric input Patient wants to stay at least an additional day to ensure that his anxiety can be controlled (2) Opioid use disorder in remission: Plan: Opioid use disorder in remission Opioid dependence Reportedly no use within the last 10 years Suboxone 8/2mg 1 tab daily RX'd by Dr. Ted Martinez per External RX history- however, patient reports taking 0.25mg tab b.i.d. (0.5 tab total daily) - entered as patient describes, will req outpatient f/u (3) Tobacco abuse: Plan: ordered nicotine patch increased dose for 07/18 to 21 mg (4) Transaminitis: Plan: suspect mild alcoholic hepatitis No reported history of liver disease Ethyl alcohol 363 on arrival ; LFTs AST 151 / ALT 106 / ALP 132 / Alb 4.7 / INR 1.1 / TBili 0.7 ; Others- Na 140 / Plt 268 / MCV 88.2 -- Maddrey Score: 4.8 (good prognosis); hold on steroids -- Benign abdominal exam Continue IVF Monitor on daily labs If no improvement- US and serologies to evaluate for secondary causes (5) Obesities, morbid: Plan: Obesity, BMI 40.4 kg/m*m BMI is 40.4 kg/m*m Risk Factor(s): Caloric intake > expenditure Treatment: I/O, daily weights defer life style changes to PCP Admission and Anticipated Discharge Date Admission Date: August 15, 2022 Subjective 36 yo male reports having anxiety. Patient presently on Librium taper Reports episodes of anxiety intermittently and concern about his mom's health Physical Exam Physical Exam: Head and ENT no thyroid enlargement trachea midline Cardiovascular S1-S2 are normal no S3 Lungs bilateral air entry fair no wheezing Abdomen soft nondistended positive bowel sounds no rebound tenderness Extremity shows trace edema Neurologically no focal deficits intermittent tremors noted Skin shows no rash no cyanosis Results & Data Results & Data ([facility]) Vital Signs (Past 12 Hours) Vital Signs Temp Pulse Pulse Resp BP BP Pulse Ox 08/18/22 23:00 36.6 C 94 H 18 118/83 95 08/18/22 21:27 36.4 C L 97 H 16 159/109 H 97 08/18/22 17:20 36.7 C 97 H 18 176/96 H 94 08/18/22 15:22 101 H 08/18/22 14:46 36.6 C 107 H 20 160/108 H 94 O2 Del Method 08/18/22 23:00 Room Air 08/18/22 21:27 Room Air 08/18/22 17:20 Room Air 08/18/22 15:22 08/18/22 14:46 Room Air PG Care Time/CCT Total # of Minutes Spent Total Time Spent with Patient: Total time spent is greater than 50% in coordination of care (as documented) at patient's floor/unit and/or counseling patient: Coding Level of Care Code 12610 SUB INP/OBS CARE /MIN Diagnoses Alcohol withdrawal F10.930 Complication of substance-induced condition: uncomplicated Opioid use disorder in remission F11.91 Tobacco abuse Z72.0 Transaminitis R74.01 Obesities, morbid E66.01 (1) Alcohol withdrawal Complication of substance-induced condition: uncomplicated Qualified Code(s): F10.930 - Alcohol use, unspecified with withdrawal, uncomplicated
[2022-08-19] MEDS: chlordiazePOXIDE HCl 25 MG CAP PO SCH (04:35)
[2022-08-19 06:35] LABS: Basophils # (auto) 0.03 K/uL (0-0.2); Basophils % (auto) 0.4 %; Eosinophils # (auto) 0.32 K/uL (0-0.50); Eosinophils % (auto) 4.7 %; Hemoglobin 14.2 g/dl (14.0-18.0); Immature Granulocytes # (auto) 0.02 K/uL (0.01-0.20); Immature Granulocytes % (auto) 0.3 %; Lymphocytes # (auto) 2.18 K/uL (1.2-3.4); Lymphocytes % (auto) 32.1 %; Mean Corpuscular Hemoglobin 31.6 pg (25.0-34.0); Mean Corpuscular Hgb Conc 34.6 g/dL (32.0-36.0); Mean Corpuscular Volume 91.1 fL (80.0-100.0); Mean Platelet Volume 9.6 fL (9.4-12.4); Monocytes % (auto) 7.4 %; Neutrophils # (auto) 3.75 K/uL (1.40-6.50); Neutrophils % (auto) 55.1 %; Platelet Count 142 K/uL (130-400); RDW Coefficient of Variation 12.6 % (11.5-14.5); RDW Standard Deviation 40.9 fL (36.4-46.3)
[2022-08-19 07:06] LABS: Albumin Globulin Ratio 1.2 (0.9-2); Albumin Level 3.8 gm/dl (3.4-5.0); BUN Creatinine Ratio 14.5 (10-20); Calcium 9.1 mg/dl (8.5-10.1); Creatinine Clr Calc Pharmacy 200.7 ml/min; Est GFR (African American) 134.1 ml/min; Est GFR (Non-African American) 115.7 ml/min; Globulin 3.2 gm/dl (2.5-4.0); Potassium 3.5 mmol/L (3.5-5.1)
[2022-08-19] MEDS: NICOTINE 21 MG/24 HR TDSY TD SCH (08:40)
[2022-08-19] MEDS: FOLIC ACID 1 MG in SYRINGE 9.8 ML IV SCH (08:40)
[2022-08-19] MEDS: THIAMINE HCL 200 MG in SODIUM CHLORIDE 0.9% 50 ML IV SCH (08:48)
[2022-08-19] MEDS: BUPRENORPHINE/NALOXONE 8/2 MG TAB SL SCH ×2 (08:48→20:30)
[2022-08-19] MEDS: PANTOprazole 40 MG in SYRINGE 0 ML IV SCH (11:22)
[2022-08-19] MEDS: LORazepam 2 MG/1 ML VIAL IV PRN ×2 (11:48→23:36)
[2022-08-20] MEDS: LORazepam 1 MG TAB PO PRN ×3 (03:36→19:34)
[2022-08-20 06:57] LABS: Basophils # (auto) 0.03 K/uL (0-0.2); Basophils % (auto) 0.4 %; Eosinophils # (auto) 0.31 K/uL (0-0.50); Eosinophils % (auto) 4.3 %; Hematocrit (blood only) 40.1 % (42.0-52.0); Hemoglobin 14.1 g/dl (14.0-18.0); Immature Granulocytes # (auto) 0.03 K/uL (0.01-0.20); Immature Granulocytes % (auto) 0.4 %; Lymphocytes # (auto) 2.29 K/uL (1.2-3.4); Lymphocytes % (auto) 31.9 %; Mean Corpuscular Hemoglobin 31.9 pg (25.0-34.0); Mean Corpuscular Hgb Conc 35.2 g/dL (32.0-36.0); Mean Corpuscular Volume 90.7 fL (80.0-100.0); Mean Platelet Volume 9.5 fL (9.4-12.4); Monocytes % (auto) 9.7 %; Neutrophils # (auto) 3.82 K/uL (1.40-6.50); Neutrophils % (auto) 53.3 %; Platelet Count 144 K/uL (130-400); RDW Coefficient of Variation 12.8 % (11.5-14.5); RDW Standard Deviation 41.2 fL (36.4-46.3); Red Blood Count 4.42 M/uL (4.70-6.10); White Blood Count 7.18 K/ul (4.8-10.8)
[2022-08-20 07:19] LABS: BUN Creatinine Ratio 14.9 (10-20); Blood Urea Nitrogen 11 mg/dl (6-23); Carbon Dioxide 29 mmol/L (21-32); Chloride 104 mmol/L (98-107); Creatinine Clr Calc Pharmacy 204.7 ml/min; Est GFR (African American) 135.6 ml/min; Glucose 94 mg/dl (70-99(Fasting))
[2022-08-20 08:05] LABS: Potassium 3.9 mmol/L (3.5-5.1)
[2022-08-20] MEDS: NICOTINE 21 MG/24 HR TDSY TD SCH (08:24)
[2022-08-20] MEDS: FOLIC ACID 1 MG in SYRINGE 9.8 ML IV SCH (08:24)
[2022-08-20] MEDS: BUPRENORPHINE/NALOXONE 8/2 MG TAB SL SCH ×2 (08:33→20:47)
[2022-08-20] MEDS: hydrOXYzine HCl 25 MG TAB PO PRN ×3 (08:34→23:01)
[2022-08-20] MEDS: THIAMINE HCL 200 MG in SODIUM CHLORIDE 0.9% 50 ML IV SCH (08:34)
--- NOTE | 2022-08-20 08:45 | Hospitalist Progress Note ---
Date of Service August 19, 2022 Assessment & Plan (1) Alcohol withdrawal: Plan: Patient admitted for alcohol withdrawal. Patient is interested in quitting alcohol. Patient currently scoring high on AWSS. On librium taper which was started on 08/16 Patient has required intermittent dosing of ativan 08/18-patient is presently on [facility] protocol Discussed with case management regarding options for patient's follow-up once he is discharged Patient was offered support from counseling regarding his anxiety symptoms and psychiatric input Patient wants to stay at least an additional day to ensure that his anxiety can be controlled 08/19 - pt presently on [facility] protocol pt reports feeling slightly better requests psych consult himself which was offered yesterday to deal with his anxiety (2) Opioid use disorder in remission: Plan: Opioid use disorder in remission Opioid dependence Reportedly no use within the last 10 years Suboxone 8/2mg 1 tab daily RX'd by Dr. Ted Martinez per External RX history- however, patient reports taking 0.25mg tab b.i.d. (0.5 tab total daily) - entered as patient describes, will req outpatient f/u (3) Tobacco abuse: Plan: ordered nicotine patch increased dose for 07/18 to 21 mg (4) Transaminitis: Plan: suspect mild alcoholic hepatitis No reported history of liver disease Ethyl alcohol 363 on arrival ; LFTs AST 151 / ALT 106 / ALP 132 / Alb 4.7 / INR 1.1 / TBili 0.7 ; Others- Na 140 / Plt 268 / MCV 88.2 -- Maddrey Score: 4.8 (good prognosis); hold on steroids -- Benign abdominal exam Continue IVF Monitor on daily labs If no improvement- US and serologies to evaluate for secondary causes (5) Obesities, morbid: Plan: Obesity, BMI 40.4 kg/m*m BMI is 40.4 kg/m*m Risk Factor(s): Caloric intake > expenditure Treatment: I/O, daily weights defer life style changes to PCP Admission and Anticipated Discharge Date Admission Date: August 15, 2022 Subjective 36 yo male reports having anxiety. Patient presently on [facility] protocol Reports episodes of anxiety intermittently Physical Exam Physical Exam: Head and ENT no thyroid enlargement trachea midline Cardiovascular S1-S2 are normal no S3 Lungs bilateral air entry fair no wheezing Abdomen soft nondistended positive bowel sounds no rebound tenderness Extremity shows trace edema Neurologically no focal deficits intermittent tremors noted Skin shows no rash no cyanosis Results & Data Results & Data ([facility]) Vital Signs (Past 12 Hours) Vital Signs Temp Pulse Pulse Resp BP BP Pulse Ox 08/18/22 23:00 36.6 C 94 H 18 118/83 95 08/18/22 21:27 36.4 C L 97 H 16 159/109 H 97 08/18/22 17:20 36.7 C 97 H 18 176/96 H 94 08/18/22 15:22 101 H 08/18/22 14:46 36.6 C 107 H 20 160/108 H 94 O2 Del Method 08/18/22 23:00 Room Air 08/18/22 21:27 Room Air 08/18/22 17:20 Room Air 08/18/22 15:22 08/18/22 14:46 Room Air PG Care Time/CCT Total # of Minutes Spent Total Time Spent with Patient: Total time spent is greater than 50% in coordination of care (as documented) at patient's floor/unit and/or counseling patient: Coding Level of Care Code 60072 SUB INP/OBS CARE 2/35MIN Diagnoses Alcohol withdrawal F10.930 Complication of substance-induced condition: uncomplicated Opioid use disorder in remission F11.91 Tobacco abuse Z72.0 Transaminitis R74.01 Obesities, morbid E66.01 (1) Alcohol withdrawal Complication of substance-induced condition: uncomplicated Qualified Code(s): F10.930 - Alcohol use, unspecified with withdrawal, uncomplicated
[2022-08-20] MEDS: PANTOprazole 40 MG in SYRINGE 0 ML IV SCH (11:20)
--- NOTE | 2022-08-20 11:25 | Psychiatric Consultation ---
Date of Consultation August 20, 2022 Impression / Recommendations Impression Diagnostically consistent with alcohol use disorder as well as unspecified anxiety likely a combination of substance-induced as well as ALEC versus adjustment disorder with anxiety in context of ongoing stressors. Acute risk of self-harm is low given denial of SI and no longer with intoxication. Chronic risk of self-harm and harm to others is slightly increased due to substance use with substance use treatment being the most significant modifiable risk factor to reduce acute and chronic risk. He is not interested in residential treatment at this time but are agreeable to outpatient services to help with substance use and medication assisted treatment and plans to participate in AA. Overall, I spent a total of 60 minutes with this case including review of chart records, review of labwork, direct evaluation of the patient at bedside, counseling the patient, discussion of the patient with the hospitalist provider, discussion with the psychiatric liason during clinical rounds and documentation in the electronic health record. (1) Alcohol use disorder, moderate, dependence: Plan -Would start escitalopram 10mg daily for anxiety and mood benefits -Would start Vistaril 25mg Q6H prn po for anxiety -Consider starting acamprosate 333mg TID if Cr/renal ok in outpatient setting for alcohol use (not available on hospital formulary and cost prohibitive without insurance). -Continue AWSS as well as thiamine and folic acid -Psychiatric liason provided resources on local mental health services and substance use services for when his medical insurance becomes active and reviewed option to call [facility] as he may be eligible for free services through their clinic until his insurance becomes active -Patient is not an imminent danger to self or others and does not meet criteria for involuntary psychiatric commitment, he may leave AMA Psych History Identifying Data 36 yo man with history of anxiety and opioid use disorder in sustained remission on suboxone admitted medically for complicated alcohol withdrawal. Psychiatry consulted for recommendations. Chief Complaint "It got bad enough I couldn't function". History of Present Illness Henrry presented for help with withdrawing from alcohol use. Has been drinking up 1/5th of vodka daily over the last few weeks as a means of coping with various stressors including balancing the demands of caring for his son and his mother with metastatic cancer as well as increased relationship strain with his girlfriend. He notes he's always had anxiety but "things really compounded this past year and especially over this past 1.5 months". He recognized his drinking was becoming problematic and is very motivated to avoid using it again. Wants to engage with AA and start with psychiatry and therapy in outpt setting once his new medical insurance is approved. Reviewed local resources which he was appreciative of. History of anxiety and depression and took celexa and Klonopin in his 20s after the of a friend and found this helpful. Further information per psych liason note from 08/19/2022: "A&Ox3, pleasant and cooperative. Patient reports increase in alcohol use in the past 1-2 months, he reports "I don't really even like alcohol. It's hard to see how I even let it get that far". Patient has a history of opiate abuse, now prescribed Suboxone. Patient denies a psychiatric history including inpatient treatment or suicide attempts. He endorses increased anxiety with panic-like symptoms occasionally, denies SI/HI/hallucinations or delusional thinking. He states his stress has been increased d/t caring for his mother who has metastatic breast cancer and needs much assistance with ADLs. Mother is currently on the medical floor at [facility] d/t a recent fall and decompensation. He also has a 9 year old son as well as a girlfriend who has 2 children. He does not have insurance but has applied for medical assistance by case management. Patient is interested in outpatient psych services and medication recommendations. He is aware referrals cannot be made over the weekend and until insurance is active. Patient is hopeful for discharge tomorrow. Will provide patient with purple resource book and flag providers who take medical assistance and are taking new patients." Allergies Allergy/AdvReac Type Severity Reaction Status Date / Time No Known Allergies Allergy Unverified 04/20/21 08:54 Home Medications Medication Instructions Recorded Confirmed Type Suboxone 2 mg PO BID 08/15/22 08/15/22 History Patient History Medical History Complete tear, knee, anterior cruciate ligament (07/09/12) Surgical History S/P knee surgery S/P shoulder surgery [place] teeth extracted Family History Mother Breast cancer Grandfather (Paternal) Colorectal cancer Denies family history of Ovarian cancer Prostate cancer Myocardial infarction Social History Smoking Status: Heavy tobacco smoker Tobacco Type: Cigarettes Second Hand Exposure: Yes; Do You Dip or Chew Tobacco: Yes; Tobacco Cessation Education Requested by Patient: No Hx Alcohol Use: Yes Alcohol type: hard liquor Hx Substance Use: No Preferred Language: Montserratian Communication Ability: Effective Buying Intern Required: No Beliefs That Will Affect Care: Spiritual marital status: Current Living Situation: Family Current Living Situation Comment: Lives Girlfriend and 9 yo son current occupational status: unemployed Other Information That Helps Us Care for You: No Feels Safe at Home: Yes Safety Concerns: Feels Safe At This Time Childhood Exposure to Second-Hand Smoke: Yes Dental Care, Regularly: No Physical Activity Frequency: 3-4 Times per Week Seatbelt Use: always Sunscreen Use: No Assistive Devices: None Physical Exam Psychiatric: Orientation: alert and oriented x 3 Apperance: appropriately dressed and appropriately groomed Eye Contact: good eye contact Motor Behavior: no abnormal motor movements Speech: normal rate/rhythm/volume of speech Affect: + constricted affect Mood: + depressed mood and + anxious mood Thought Process: linear/logical thought process Thought Content: reality based without delusions Suicidal Thoughts: denies suicidal thoughts Homicidal Thoughts: denies homicidal thoughts Hallucinations: no auditory hallucinations and no visual hallucinations Cognition: recent memory grossly intact, remote memory grossly intact, attention grossly intact and language grossly intact Estimated Intelligence: consistent with education level Insight: + fair insight Judgment: + fair judgement Vital Signs (Past 24 Hours): Last Vital Signs Temp 36.4 C L 08/20/22 11:15 Pulse 88 08/20/22 11:15 Resp 18 08/20/22 11:15 BP 150/103 H 08/20/22 11:15 Pulse Ox 93 08/20/22 11:15 O2 Del Method Room Air 08/20/22 11:15 Review of Systems All systems reviewed & are unremarkable except as noted in HPI & below Results & Data ([facility]) Laboratory Results normal Na+ Medications Administered Buprenorphine/Naloxone (Buprenorphine/Naloxone 8/2 Mg Tab) 0.25 tab SL BID YANNA Stop: 09/14/22 21:29 Last Admin: 08/20/22 08:33 Dose: 0.25 tab Documented By: Admin: 08/19/22 20:30 Dose: 0.25 tab Documented By: Admin: 08/19/22 08:48 Dose: 0.25 tab Documented By: Admin: 08/18/22 21:22 Dose: 0.25 tab Documented By: Admin: 08/18/22 08:28 Dose: 0.25 tab Documented By: Admin: 08/17/22 20:42 Dose: 0.25 tab Documented By: Admin: 08/17/22 07:49 Dose: 0.25 tab Documented By: Admin: 08/16/22 21:53 Dose: 0.25 tab Documented By: Admin: 08/16/22 08:10 Dose: 0.25 tab Documented By: Admin: 08/15/22 22:02 Dose: 0.25 tab Documented By: TREVOR Hydroxyzine HCl (Hydroxyzine Hcl 25 Mg Tab) 25 mg PO Q8 PRN PRN Reason: Anxiety Stop: 09/18/22 18:37 Last Admin: 08/20/22 08:34 Dose: 25 mg Documented By: MAITE Folic Acid 1 mg/ Syringe 10 mls @ 5 mls/min IV QAM YANNA Stop: 09/15/22 08:59 Last Admin: 08/20/22 08:24 Dose: 5 mls/min Documented By: Admin: 08/19/22 08:40 Dose: 5 mls/min Documented By: Admin: 08/18/22 08:17 Dose: 5 mls/min Documented By: Admin: 08/17/22 07:37 Dose: 5 mls/min Documented By: Admin: 08/16/22 08:03 Dose: 5 mls/min Documented By: CEASAR Pantoprazole Sodium 40 mg/ (Syringe) 10 mls @ 5 mls/min IV DAILY@1100 YANNA Stop: 09/15/22 10:59 Last Admin: 08/20/22 11:20 Dose: 5 mls/min Documented By: Admin: 08/19/22 11:22 Dose: 5 mls/min Documented By: Admin: 08/18/22 11:21 Dose: 5 mls/min Documented By: Admin: 08/17/22 07:37 Dose: 5 mls/min Documented By: Admin: 08/16/22 11:27 Dose: 5 mls/min Documented By: CEASAR Thiamine HCl 200 mg/ Sodium (Chloride) 52 mls @ 210 mls/hr IV QAM YANNA Stop: 09/15/22 08:59 Last Infusion: 08/20/22 09:41 Dose: 0 mls/hr Documented By: Admin: 08/20/22 08:34 Dose: 210 mls/hr Documented By: Infusion: 08/19/22 09:46 Dose: 0 mls/hr Documented By: Admin: 08/19/22 08:48 Dose: 210 mls/hr Documented By: Infusion: 08/18/22 10:11 Dose: 0 mls/hr Documented By: Admin: 08/18/22 08:28 Dose: 210 mls/hr Documented By: Infusion: 08/17/22 07:54 Dose: 0 mls/hr Documented By: Admin: 08/17/22 07:37 Dose: 210 mls/hr Documented By: Infusion: 08/16/22 08:55 Dose: 0 mls/hr Documented By: Admin: 08/16/22 08:13 Dose: 210 mls/hr Documented By: CEASAR Lorazepam (Lorazepam 2 Mg/1 Ml Vial) 2 mg IV UD PRN; Protocol PRN Reason: EtOH Withdrawal AWSS Score 8,9 Stop: 09/14/22 16:16 Last Admin: 08/17/22 14:19 Dose: 2 mg Documented By: Admin: 08/17/22 11:28 Dose: 2 mg Documented By: Admin: 08/17/22 09:43 Dose: 2 mg Documented By: Admin: 08/17/22 05:22 Dose: 2 mg Documented By: Admin: 08/17/22 02:22 Dose: 2 mg Documented By: Admin: 08/17/22 00:20 Dose: 2 mg Documented By: Admin: 08/16/22 08:00 Dose: 2 mg Documented By: Admin: 08/16/22 05:40 Dose: 2 mg Documented By: Admin: 08/16/22 03:06 Dose: 2 mg Documented By: Admin: 08/16/22 01:53 Dose: 2 mg Documented By: Admin: 08/16/22 00:42 Dose: 2 mg Documented By: [facility] Admin: 08/15/22 23:30 Dose: 2 mg Documented By: [facility] Admin: 08/15/22 22:14 Dose: 2 mg Documented By: [facility] Admin: 08/15/22 20:55 Dose: 2 mg Documented By: [facility] Lorazepam (Lorazepam 2 Mg/1 Ml Vial) 1 mg IV UD PRN; Protocol PRN Reason: EtOH Withdrawal AWSS Score 6,7 Stop: 09/14/22 16:16 Last Admin: 08/19/22 23:36 Dose: 1 mg Documented By: Admin: 08/19/22 11:48 Dose: 1 mg Documented By: Admin: 08/18/22 21:41 Dose: 1 mg Documented By: Admin: 08/18/22 14:54 Dose: 1 mg Documented By: Admin: 08/18/22 08:52 Dose: 1 mg Documented By: Admin: 08/17/22 23:43 Dose: 1 mg Documented By: Admin: 08/17/22 17:08 Dose: 1 mg Documented By: Admin: 08/17/22 07:35 Dose: 1 mg Documented By: Admin: 08/16/22 20:08 Dose: 1 mg Documented By: Admin: 08/16/22 15:20 Dose: 1 mg Documented By: Admin: 08/16/22 11:27 Dose: 1 mg Documented By: Admin: 08/16/22 09:02 Dose: 1 mg Documented By: Admin: 08/15/22 17:26 Dose: 1 mg Documented By: AM Lorazepam (Lorazepam 1 Mg Tab) 1 mg PO Q8 PRN PRN Reason: Agitation, severe anxiety Stop: 08/21/22 14:35 Last Admin: 08/20/22 03:36 Dose: 1 mg Documented By: Miscellaneous (Remove Nicoderm Patch) 1 each N/A DAILY@0859 [facility] Stop: 09/15/22 08:58 Last Admin: 08/20/22 08:25 Dose: 1 each Documented By: Admin: 08/19/22 08:40 Dose: 1 each Documented By: Admin: 08/18/22 08:18 Dose: 1 each Documented By: Admin: 08/17/22 07:35 Dose: 1 each Documented By: Admin: 08/16/22 08:13 Dose: 1 each Documented By: CEASAR Nicotine (Nicotine 21 Mg/24 Hr Tdsy) 21 mg TD QAM YANNA Stop: 09/17/22 08:59 Last Admin: 08/20/22 08:24 Dose: 21 mg Documented By: Admin: 08/19/22 08:40 Dose: 21 mg Documented By: Admin: 08/18/22 08:17 Dose: 21 mg Documented By: BT Ondansetron HCl (Ondansetron Inj 2 Mg/Ml 2 Ml Vial) 4 mg IV Q6H PRN PRN Reason: Nausea And Vomiting Stop: 09/15/22 05:05 Last Admin: 08/18/22 04:26 Dose: 4 mg Documented By: Admin: 08/16/22 05:40 Dose: 4 mg Documented By: TREVOR Coding Level of Care Code INP/OBS CONSULT LVL 4, 60 MIN Diagnoses Alcohol use disorder, moderate, dependence F10.20
--- NOTE | 2022-08-20 15:50 | Hospitalist Progress Note ---
Date of Service August 20, 2022 Assessment & Plan (1) Alcohol withdrawal: Plan: Patient admitted for alcohol withdrawal. Patient is interested in quitting alcohol. Patient currently scoring high on AWSS. On librium taper which was started on 08/16 Patient has required intermittent dosing of ativan 08/18-patient is presently on [facility] protocol Discussed with case management regarding options for patient's follow-up once he is discharged Patient was offered support from counseling regarding his anxiety symptoms and psychiatric input Patient wants to stay at least an additional day to ensure that his anxiety can be controlled 08/19 - pt presently on [facility] protocol pt reports feeling slightly better requests psych consult himself which was offered yesterday to deal with his anxiety 08/20-patient presently on [facility] protocol On thiamine and folic acid for alcohol withdrawal protocol Seen by psychiatry today and recommended being started on Vistaril as well as escitalopram Case management to assist with consult for follow-up Anticipate discharge tomorrow with case management assistance To continue on Vistaril as needed along with escitalopram and Ativan only if needed. (2) Opioid use disorder in remission: Plan: Opioid use disorder in remission Opioid dependence Reportedly no use within the last 10 years Suboxone 8/2mg 1 tab daily RX'd by Dr. Ted Martinez per External RX history- however, patient reports taking 0.25mg tab b.i.d. (0.5 tab total daily) - entered as patient describes, will req outpatient f/u (3) Tobacco abuse: Plan: ordered nicotine patch increased dose for 07/18 to 21 mg (4) Transaminitis: Plan: suspect mild alcoholic hepatitis No reported history of liver disease Ethyl alcohol 363 on arrival ; LFTs AST 151 / ALT 106 / ALP 132 / Alb 4.7 / INR 1.1 / TBili 0.7 ; Others- Na 140 / Plt 268 / MCV 88.2 -- Maddrey Score: 4.8 (good prognosis); hold on steroids -- Benign abdominal exam Continue IVF Monitor on daily labs If no improvement- US and serologies to evaluate for secondary causes (5) Obesities, morbid: Plan: Obesity, BMI 40.4 kg/m*m BMI is 40.4 kg/m*m Risk Factor(s): Caloric intake > expenditure Treatment: I/O, daily weights defer life style changes to PCP Admission and Anticipated Discharge Date Admission Date: August 15, 2022 Subjective 36 yo male reports having anxiety. Patient presently on [facility] protocol Reports episodes of anxiety intermittently Patient seen by psychiatry today Physical Exam Physical Exam: Patient slightly less anxious compared to yesterday Head and ENT no thyroid enlargement trachea midline Cardiovascular S1-S2 are normal no S3 Lungs bilateral air entry fair no wheezing Abdomen soft nondistended positive bowel sounds no rebound tenderness Extremity shows trace edema Neurologically no focal deficits intermittent tremors noted Skin shows no rash no cyanosis Results & Data Results & Data ([facility]) Vital Signs (Past 12 Hours) Vital Signs Temp Pulse Pulse Resp BP Pulse Ox O2 Del Method 08/20/22 15:12 86 08/20/22 15:03 36.3 C L 97 H 18 145/89 H 92 Room Air 08/20/22 11:15 36.4 C L 88 18 150/103 H 93 Room Air 08/20/22 07:44 81 08/20/22 07:31 36.5 C 84 18 126/75 97 Room Air PG Care Time/CCT Total # of Minutes Spent Total Time Spent with Patient: Total time spent is greater than 50% in coordination of care (as documented) at patient's floor/unit and/or counseling patient: Coding Level of Care Code None Diagnoses Alcohol withdrawal F10.930 Complication of substance-induced condition: uncomplicated Opioid use disorder in remission F11.91 Tobacco abuse Z72.0 Transaminitis R74.01 Obesities, morbid E66.01 (1) Alcohol withdrawal Complication of substance-induced condition: uncomplicated Qualified Code(s): F10.930 - Alcohol use, unspecified with withdrawal, uncomplicated
[2022-08-20] MEDS: ESCITALOPRAM OXALATE 10 MG TAB PO SCH (16:59)
[2022-08-20] MEDS ORDERED: PROPRANOLOL HCL 20 MG TAB PO ONE (20:30)
[2022-08-21] MEDS: LORazepam 1 MG TAB PO PRN (05:52)
[2022-08-21 06:36] LABS: BUN Creatinine Ratio 11.8 (10-20); Calcium 8.9 mg/dl (8.5-10.1); Creatinine Clr Calc Pharmacy 178.2 ml/min; Est GFR (African American) 128.1 ml/min; Est GFR (Non-African American) 110.5 ml/min; Potassium 3.8 mmol/L (3.5-5.1)
[2022-08-21 06:37] LABS: Basophils # (auto) 0.04 K/uL (0-0.2); Basophils % (auto) 0.6 %; Eosinophils # (auto) 0.32 K/uL (0-0.50); Eosinophils % (auto) 4.5 %; Hematocrit (blood only) 41.5 % (42.0-52.0); Hemoglobin 14.6 g/dl (14.0-18.0); Immature Granulocytes # (auto) 0.03 K/uL (0.01-0.20); Immature Granulocytes % (auto) 0.4 %; Lymphocytes # (auto) 2.49 K/uL (1.2-3.4); Lymphocytes % (auto) 35.4 %; Mean Corpuscular Hemoglobin 31.8 pg (25.0-34.0); Mean Corpuscular Hgb Conc 35.2 g/dL (32.0-36.0); Mean Corpuscular Volume 90.4 fL (80.0-100.0); Mean Platelet Volume 9.8 fL (9.4-12.4); Monocytes # (auto) 0.88 K/uL (0.11-0.59); Monocytes % (auto) 12.5 %; Neutrophils # (auto) 3.28 K/uL (1.40-6.50); Neutrophils % (auto) 46.6 %; Platelet Count 141 K/uL (130-400); RDW Coefficient of Variation 13.2 % (11.5-14.5); RDW Standard Deviation 42.5 fL (36.4-46.3); Red Blood Count 4.59 M/uL (4.70-6.10); White Blood Count 7.04 K/ul (4.8-10.8)
[2022-08-21] MEDS: BUPRENORPHINE/NALOXONE 8/2 MG TAB SL SCH (08:29)
[2022-08-21] MEDS: FOLIC ACID 1 MG in SYRINGE 9.8 ML IV SCH (09:05)
[2022-08-21] MEDS: THIAMINE HCL 200 MG in SODIUM CHLORIDE 0.9% 50 ML IV SCH (09:06)
[2022-08-21] MEDS: NICOTINE 21 MG/24 HR TDSY TD SCH (09:06)
[2022-08-21] MEDS: ESCITALOPRAM OXALATE 10 MG TAB PO SCH (09:25)
[2022-08-21] MEDS: PANTOprazole 40 MG in SYRINGE 0 ML IV SCH (10:43)
[2022-08-21] MEDS: hydrOXYzine HCl 25 MG TAB PO PRN (10:48)
--- NOTE | 2022-08-21 12:43 | Discharge Summary ---
Date of Service August 21, 2022 Admission HPI Per Admitting Provider This is a 36-year-old male with prior history of OUD on Suboxone (2mg qAM/qPM) who presents to [facility] for disordered alcohol use and management of alcohol withdrawal. Patient says that approximately 1 month ago, his mother was on life support at [facility]. This caused significant emotional trauma to him and his family. Since this time, he reports consuming about 750 cc of vodka daily X 1 month. He has still been able to eat and drink okay. Over the last several days, he has reflected significantly on his life and the recent trauma his family went throughas well as his 8-year-old son, who he cares deeply forand he reports wanting to do the right thing and to get help for his alcohol use. On the day of admission, he reports consuming about 375 cc, with last drink being around noon. He says prior to this time, he never had a persistent issue with alcohol use. He would use it socially, but not on a regular basis or to the volume that he is doing now. He does endorse a prior history of opioid use disorder for which she is taking Suboxone 2 mg twice dailyhe denies any use within the last 10 years. He denies any use of any other substances. He does report using approximately 1 pack/day of cigarettes. He denies any long-term medical issues. He does say, however, he has personally struggled with anxiety and depressionalthough he has never formally talked about this with a medical professional. He believes that these are somewhat related, in conjunction with his mother's ailments, as to why he started drinking. In the ED, patient was found to be tachycardic to 112 and hypertensive to 150/100 with normal temperature, respiratory rate 22. Admission labs reveal platelet count 268, sodium 140, BUN 10/creatinine 0.94, blood sugar 129, AST 151, ALT 106, ALP 132. Urine demonstrated trace ketones. UDS demonstrated blood alcohol level 363. He was given Librium 50 mg and lorazepam. ---- This documentation was created utilizing dictation software. As such, syntax, grammatical, and word-choice errors may be present. Notes are screened prior to submission in an attempt to reduce these errors. If there are any questions or concerns, please contact the author directly for clarification. Principal Diagnosis alcohol withdrawal Discharge Exam The patient is awake, alert and oriented 3, well developed and well nourished, normocephalic and atraumatic, lying in bed and in no acute distress. HEENT--PERRL, EOMI, mucous membranes and oropharynx mildly dry Neck--supple. No JVD. No bruits. Thyroid normal, trachea midline, no adenopathy. Heart--normal S1 and S2. No murmurs, rubs or gallops. Lungs--clear bilaterally, no respiratory distress, no accessory muscle use. Abdomen--normal bowel sounds and soft. Mild epigastric and left sided abdominal pain Extremities--no cyanosis or clubbing. No edema. Dermatologic--normal skin turgor, normal color, no abnormal lymph nodes, no rash. Neurologic--cranial nerves II through XII grossly intact. Rheumatologic--normal range of motion. Psychiatric--normal affect. Discharge Data Allergies Allergy/AdvReac Type Severity Reaction Status Date / Time No Known Allergies Allergy Unverified 04/20/21 08:54 Consultations 08/15/22 18:18 ED Decision to Admit Stat 08/19/22 14:40 Consult Psychiatry Routine Hospital Course (1) Alcohol withdrawal: Patient admitted for alcohol withdrawal. Patient is interested in quitting alcohol. On thiamine and folic acid for alcohol withdrawal protocol Seen by psychiatry and recommended being started on Vistaril as well as escitalopram No evidence of withdrawal today, no tremors Discharge home today (2) Opioid use disorder in remission: Opioid use disorder in remission Opioid dependence Reportedly no use within the last 10 years Suboxone 8/2mg 1 tab daily RX'd by Dr. Ted Martinez per External RX history- however, patient reports taking 0.25mg tab b.i.d. (0.5 tab total daily) - entered as patient describes, will req outpatient f/u (3) Tobacco abuse: ordered nicotine patch increased dose for 07/18 to 21 mg (4) Transaminitis: suspect mild alcoholic hepatitis No reported history of liver disease Ethyl alcohol 363 on arrival ; LFTs AST 151 / ALT 106 / ALP 132 / Alb 4.7 / INR 1.1 / TBili 0.7 ; Others- Na 140 / Plt 268 / MCV 88.2 -- Maddrey Score: 4.8 (good prognosis); hold on steroids -- Benign abdominal exam Continue IVF Monitor on daily labs If no improvement- US and serologies to evaluate for secondary causes (5) Obesities, morbid: Obesity, BMI 40.4 kg/m*m BMI is 40.4 kg/m*m Risk Factor(s): Caloric intake > expenditure Treatment: I/O, daily weights defer life style changes to PCP Plan d/c home Total Time Total Time Spent Total Time Spent (In Minutes): 35 Discharge Plan Discharge Items Patient Disposition: Home - Self-Care Reason For Visit: ALCOHOL WITHDRAWAL Discharge Diagnosis: alcohol withdrawal Activity: Resume your previous activity Non-emergency contact: Primary Care Provider Call non-emergency contact if: you have any medication questions Follow-up/Referrals: PCP,NO [Primary Care Provider] - Diet: Regular Addtl Attending Provider Instructions: Please make appointment to follow up with outpatient alcohol rehab and AA as provided to you in the booklet Pending Studies at Discharge: No Stand-Alone Forms: My [employer], Smoking Cessation Medications and DC Order Prescriptions: New hydroxyzine HCl 25 mg Tablet 25 mg PO Q8 PRN (Reason: anxiety) 30 Days Qty: 30 0RF escitalopram oxalate 10 mg Tablet 10 mg PO QAM 30 Days Qty: 30 0RF folic acid 1 mg tablet 1 mg PO DAILY Qty: 30 0RF thiamine HCl (vitamin B1) 50 mg tablet 50 mg PO DAILY Qty: 30 0RF Continued Suboxone 2 mg PO BID Discharge Orders: Discharge Order (Routine); Ordered 08/21/22 Ordered By: Kareen Rao Admission Data Admit Date/Time: 08/15/22 18:11 Attending Provider: Kareen Rao Admit Provider: Vineet Kimbrough Primary Care Provider: PCP,NO Other Providers: Danish Grullon ; Lorene August ; Alisia Obrien ; Bjorn Walton Other Interventions: Discharge Summary Assessment (RN) Last Done: 08/21/22 11:17 Coding Level of Care Code HOSP INP/OBS DISCH >30 MIN Diagnoses Alcohol withdrawal F10.930 Complication of substance-induced condition: uncomplicated Opioid use disorder in remission F11.91 Tobacco abuse Z72.0 Transaminitis R74.01 Obesities, morbid E66.01 Time Spent (min) 35
== END 2022-08-21 12:51 | disposition home or self-care (01) | DRG 897 ==
LOC: ED 15:28 → EDINP 18:11 → SUATTDRO 18:11 → 2S 19:27 → 2W 08-16 19:37

== ENCOUNTER 2023-09-21 15:10 | Inpatient (IN) ==
--- NOTE | 2023-09-21 16:07 | XRay Report ---
SINGLE VIEW CHEST CLINICAL HISTORY: Atypical chest pain FINDINGS: A PA chest radiograph is compared to study dated 04/20/2015. The cardiomediastinal silhouet te is top normal for projection. There are dependent airspace opacities. No large pleural effusion or pneumothorax is seen. The bony thorax is grossly intact. IMPRESSION: Dependent airspace opacities could represent atelectasis versus a mild infectious/inflamm atory pneumonitis. Clinical correlation will be required and radiographic follow-up to resolution is recommended. ACT 112: Negative or not required by law. Electronically signed by: Gerson Chun M.D. 09/21/2023 4:06 PM
[2023-09-21 16:10] LABS: Basophils # (auto) 0.04 K/uL (0.00-0.20); Basophils % (auto) 0.5 %; Eosinophils # (auto) 0.03 K/uL (0.00-0.50); Eosinophils % (auto) 0.4 %; Hemoglobin 15.7 g/dl (14.0-18.0); Immature Granulocytes # (auto) 0.04 K/uL (0.01-0.20); Immature Granulocytes % (auto) 0.5 %; Lymphocytes # (auto) 1.16 K/uL (1.20-3.40); Lymphocytes % (auto) 14.9 %; Mean Corpuscular Hemoglobin 32.9 pg (25.0-34.0); Mean Corpuscular Hgb Conc 35.7 g/dL (32.0-36.0); Mean Corpuscular Volume 92.2 fL (80.0-100.0); Monocytes # (auto) 0.61 K/uL (0.11-0.59); Monocytes % (auto) 7.8 %; Neutrophils # (auto) 5.92 K/uL (1.40-6.50); Neutrophils % (auto) 75.9 %; Platelet Count 171 K/uL (130-400); RDW Standard Deviation 44.4 fL (36.4-46.3); Red Blood Count 4.77 M/uL (4.70-6.10)
[2023-09-21 16:33] LABS: Troponin I High Sensitivity 13.5 pg/ml (0-20)
--- NOTE | 2023-09-21 16:36 | Emergency Department Note ---
Impression & Plan SOB (shortness of breath), Alcohol withdrawal, Palpitations, Pedal edema, Elevated liver enzymes, Weight gain, Hypomagnesemia ED Provider Note NAME: JHOANA MORENO AGE: 38 SEX: M : 1985 ARRIVES VIA: Walk-In INFORMANT: [Patient] ED PROVIDER(S): [Gersno Laguerre MD] CHIEF COMPLAINT: Chest pain HISTORY OF PRESENT ILLNESS: The patient is a 38-year-old male who states that he has in the last 6 months noticed weight gain, abdominal bloating, edema to his arms and legs. He states that he seems to be retaining fluid. The patient feels bloated and he feels his abdomen is distended. In the last few weeks, he has noticed some shortness of breath. He noticed some fluttering in his chest. The patient states that he is on Suboxone daily. He states he does have a history of alcohol abuse. He last drank yesterday and does feel like he may be going through some withdrawal. He typically drinks 8-12 beers daily. The patient has not had cough or cold or fever. No urinary complaints. Patient is not at this point interested in inpatient alcohol rehab. He is trying to cut back on his alcohol drinking though. PMHx/PSHx/Social Hx: See Below PHYSICAL EXAM: GENERAL: Patient is in no acute distress. HEENT: No acute trauma, normocephalic atraumatic, mucous membranes moist, no nasal congestion. NECK: No stridor, no adenopathy, no meningismus, trachea is midline. LUNGS: Clear to auscultation bilaterally, no wheeze, no rhonchi, breath sounds equal. HEART: Mildly tachycardic, regular rhythm, no murmurs. ABDOMEN: Soft, nontender, no peritonitis. Distended abdomen. EXTREMITIES: No cyanosis, full range of motion of all the joints without pain or difficulty. Mild bilateral pedal edema. NEUROLOGIC: Oriented x 3, no acute motor or sensory deficits, no focal weakness. He does have some extremity tremor noted. SKIN: No jaundice, no diaphoresis. DIFFERENTIAL DIAGNOSIS: Alcohol withdrawal, liver failure, renal failure, fluid overload, PE, obstruction, infection, dysrhythmia, NC, among others. EMERGENCY DEPARTMENT PROCEDURES: MEDICAL DECISION MAKING: There is no leukocytosis or concerning anemia. There was a normal platelet count. No coagulopathy. Magnesium was low, no renal failure. There were significant liver enzyme elevations, likely from his alcohol use/abuse. Patient appeared to be in a euthyroid state. ECG showed a sinus tachycardia, no obvious acute ischemia, no dysrhythmia. Cardiac enzyme testing x 1 was not consistent with acute cardiac injury. Alcohol level was undetectable. Chest x-ray showed some potential parenchymal congestion versus changes just from his body habitus. Chest CT did not show PE or pneumonia. Abdominal and pelvis CT shows a very large liver. No bowel obstruction, there was a fat-containing umbilical hernia. On exam, the patient was slightly tachycardic at times. He had some tremor to his extremities. He complained of early alcohol withdrawal. The patient was aggressively managed given his complaints and findings. He received IV saline with multivitamins, thiamine and folate. He received IV magnesium. He received IV Ativan for his alcohol withdrawal. He was watched on the color television console monitor. The patient does seem to be slightly improved. Given his complaints, given his alcohol withdrawal symptoms, given the tachycardia, his liver enzyme findings, his edema, I do think a hospital stay is warranted. I do not think he is safe for discharge. I spoke with the patient and case management, the on-call hospitalist was consulted. Prior/Outside records/notes reviewed: None ECG per my interpretation: Indication was fluttering and shortness of breath. The ECG shows a sinus tachycardia with a rate of 108. There is an incomplete right bundle branch block. There is no acute ST elevation, no PVCs. The QTc is 474. Continuous Cardiac Monitoring per my interpretation: An order was placed for continuous cardiac monitoring. The monitor shows a rate of 105 with sinus tachycardia. Imaging/x-ray results per my interpretation: Chest x-ray shows some potential right lower lung congestion versus changes from just his body habitus. No pneumothorax Chronic Medical/Social conditions affecting care: Alcohol abuse Care/Management discussed with: Case management, the on-call hospitalist. Level of care consideration(s): After review of the information above and other included data: --I believe the patient requires escalation of care to admission Critical Care Note: I have personally spent 46 minutes of critical care time in the direct management of this patient. This includes bedside care, interpretation of diagnostic studies, and testing, discussion with consultants, patient, and family members, and other required patient management activities. This 46 minutes is in excess of all separately billable procedures. DISPOSITION: Admission Past Med/Surg History Medical History Abnormal LFTs Alcohol withdrawal Ruptured epidermal cyst Complete tear, knee, anterior cruciate ligament (07/09/12) Surgical History (Updated 09/15/22 @ 09:29 by Sandra Rojas RN) History of removal of cyst (09/12/22) Skin, right shoulder (excision): In office procedure Dr. Lara - Changes consistent with a ruptured, markedly inflamed epidermal cyst with associated fat necrosis are seen. - Focal abscess formation is noted. - See comment. [place] teeth extracted S/P knee surgery S/P shoulder surgery Family History Mother Breast cancer Clotting disorder Stroke Grandfather (Paternal) Colorectal cancer Denies family history of Ovarian cancer Prostate cancer Myocardial infarction Social History Smoking Status: Current some day smoker Tobacco Type: Cigarettes and Smokeless Tobacco (Dip or Chew) Age Started Using Tobacco: 31; Smoking End Date: n/a; Second Hand Exposure: Yes; Do You Dip or Chew Tobacco: Yes; Tobacco Cessation Education Requested by Patient: No Hx Alcohol Use: Yes Alcohol type: beer and hard liquor Hx Substance Use: No Preferred Language: Bangladeshi Communication Ability: Effective 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 Beliefs That Will Affect Care: None marital status: Single Current Living Situation: Family Current Living Situation Comment: Lives Girlfriend and 9 yo son current occupational status: employed and unemployed current occupation: Contruction How many Children do You have: 1 Other Information That Helps Us Care for You: No Feels Safe at Home: Yes Safety Concerns: Feels Safe At This Time Childhood Exposure to Second-Hand Smoke: Yes Diet: regular during the past year weight has: increased > 10 lbs Dental Care, Regularly: No Physical Activity Frequency: 3-4 Times per Week Seatbelt Use: always Sunscreen Use: No Assistive Devices: None Allergies Allergies Allergy/AdvReac Type Severity Reaction Status Date / Time No Known Allergies Allergy Unverified 09/21/23 19:48 Home Meds Home Medications Medication Instructions Recorded Confirmed buprenorphine 8 mg-naloxone 2 mg 0.5 tab sublingual BID 09/21/23 09/21/23 sublingual tablet Results & Data (ED) Vital Signs Vital Signs - 24 hr 09/21/23 15:22 09/21/23 16:03 09/21/23 16:10 Temperature 36.6 C Temperature Source Temporal Artery Scan Pulse Rate 108 H 116 H 107 H Pulse Rate [Apical] Pulse Rate from SpO2 Sensor 119 H Respiratory Rate 20 23 Respiratory Effort / Characteristics Non-Labored Spontaneous Respiratory Depth Normal Blood Pressure 201/110 H Blood Pressure [Right Arm] Blood Pressure Mean 140 Blood Pressure Mean [Right Arm] Pulse Oximetry 94 92 Oxygen Delivery Method Room Air Room Air Sepsis Recent Fever Within 48 Hours No Sepsis New/Unexplained Change in Mental Status N/A Sepsis Action Taken by Nursing No Action Required 09/21/23 17:11 09/21/23 17:38 09/21/23 18:05 Temperature Temperature Source Pulse Rate 101 H 108 H Pulse Rate [Apical] 105 H Pulse Rate from SpO2 Sensor 101 H Respiratory Rate 18 19 17 Respiratory Effort / Characteristics Non-Labored Spontaneous Respiratory Depth Normal Blood Pressure 152/114 H 133/107 H Blood Pressure [Right Arm] 152/114 H Blood Pressure Mean 126 115 Blood Pressure Mean [Right Arm] 126 Pulse Oximetry 94 96 93 Oxygen Delivery Method Room Air Room Air Room Air Sepsis Recent Fever Within 48 Hours Sepsis New/Unexplained Change in Mental Status Sepsis Action Taken by Nursing 09/21/23 19:02 09/21/23 20:00 09/21/23 20:01 Temperature Temperature Source Pulse Rate 95 H 103 H 94 H Pulse Rate [Apical] Pulse Rate from SpO2 Sensor 97 H 89 Respiratory Rate 22 19 Respiratory Effort / Characteristics Respiratory Depth Blood Pressure 133/94 140/107 H Blood Pressure [Right Arm] Blood Pressure Mean 107 118 Blood Pressure Mean [Right Arm] Pulse Oximetry 92 93 Oxygen Delivery Method Room Air Room Air Sepsis Recent Fever Within 48 Hours Sepsis New/Unexplained Change in Mental Status Sepsis Action Taken by Intermediate Medications Current Medication List: was personally reviewed by me Laboratory Data Attestation: I reviewed the patient's lab results. 09/21/23 15:50 09/21/23 17:18 Lab Results 09/21/23 09/21/23 Range/Units 15:50 17:18 WBC 7.80 (4.8-10.8) K/ul RBC 4.77 (4.70-6.10) M/uL Hgb 15.7 (14.0-18.0) g/dl Hct 44.0 (42.0-52.0) % MCV 92.2 (80.0-100.0) fL MCH 32.9 (25.0-34.0) pg MCHC 35.7 (32.0-36.0) g/dL RDW Std Deviation 44.4 (36.4-46.3) fL RDW Coeff of Vanesa 13.0 (11.5-14.5) % Plt Count 171 (130-400) K/uL MPV 10.0 (9.4-12.4) fL Immature Gran % (Auto) 0.5 % Neut % (Auto) 75.9 % Lymph % (Auto) 14.9 % [place] % (Auto) 7.8 % Eos % (Auto) 0.4 % Baso % (Auto) 0.5 % Neut # (Auto) 5.92 (1.40-6.50) K/uL Lymph # (Auto) 1.16 L (1.20-3.40) K/uL [place] # (Auto) 0.61 H (0.11-0.59) K/uL Eos # (Auto) 0.03 (0.00-0.50) K/uL Baso # (Auto) 0.04 (0.00-0.20) K/uL Immature Gran # (Auto) 0.04 (0.01-0.20) K/uL PT 11.3 (9.0-12.0) Seconds INR 1.0 (0.9-1.1) APTT 24 (21-31) Seconds PTT Ratio 0.9 Sodium TNP 136 Potassium TNP 4.1 Chloride 96 L (98-107) mmol/L Carbon Dioxide 22 (21-32) mmol/L Anion Gap TNP BUN 7 (6-23) mg/dl Creatinine 0.76 (0.6-1.4) mg/dl Est Cr Clr Drug Dosing Not Reportable Est GFR ( Amer) 132.3 ml/min Est GFR (Non-Af Amer) 114.1 ml/min BUN/Creatinine Ratio 9.2 L (10-20) Glucose 129 H (70-99(Fasting)) mg/dl Calcium 9.1 (8.6-10.3) mg/dl Magnesium TNP 1.5 L Total Bilirubin 1.9 H (0.2-1.0) mg/dl AST TNP 464 H ALT 248 H (7-52) U/L Alkaline Phosphatase TNP 213 H Troponin I High Sens 13.5 (0-20) pg/ml Total Protein 7.9 (6.0-8.3) gm/dl Albumin TNP 3.4 Globulin TNP Albumin/Globulin Ratio TNP TSH 1.508 (0.300-4.500) uIu/ml Administered Medications Buprenorphine/Naloxone (Buprenorphine/Naloxone 2/0.5mg 1 Tab) 2 tab SL BID YANNA Stop: 10/21/23 21:18 Last Admin: 09/21/23 22:05 Dose: 2 tab Documented By: EBV Potassium Chloride/Sodium Chloride (Normal Saline W/20 Meq Kcl) 20 meq in 1,000 mls @ 100 mls/hr IV .Q10H [facility]; Protocol Stop: 09/22/23 06:29 Last Admin: 09/21/23 22:59 Dose: 100 mls/hr Documented By: BEV Miscellaneous (Remove Nicoderm Patch) 1 each N/A DAILY@0859 [facility] Stop: 10/21/23 20:14 Last Admin: 09/21/23 22:17 Dose: Not Given Documented By: BEV Discontinued Medications Clonidine HCl (Clonidine Hcl 0.1 Mg Tab) 0.2 mg PO NOW STA Stop: 09/21/23 21:11 Last Admin: 09/21/23 22:05 Dose: 0.2 mg Documented By: BEV Multivitamins 10 ml/ Thiamine HCl 100 mg/ Folic Acid 1 mg/Sodium Chloride 1,011.2 mls @ 500 mls/hr IV .Q2H2M ONE Stop: 09/21/23 18:24 Last Admin: 09/21/23 17:32 Dose: 500 mls/hr Documented By: SULLY Magnesium Sulfate/Dextrose (Magnesium Sulfate / D5w) 1 gm in 100 mls @ 100 mls/hr IV NOW STA Stop: 09/21/23 19:03 Last Infusion: 09/21/23 19:35 Dose: Infused Documented By: Admin: 09/21/23 18:25 Dose: 100 mls/hr Documented By: NORBERT Magnesium Sulfate/Dextrose (Magnesium Sulfate / D5w) 1 gm in 100 mls @ 50 mls/hr IV ONE ONE Stop: 09/21/23 22:20 Last Admin: 09/21/23 22:16 Dose: 50 mls/hr Documented By: BEV Ioversol (Optiray 350 500ml) 118 ml IV ONCE ONE Stop: 09/21/23 17:54 Last Admin: 09/21/23 17:53 Dose: 118 ml Documented By: STEFFANY Lorazepam (Lorazepam 1 Mg/1 Ml Syr Ed Inj Use) 2 mg IV ONE STA Stop: 09/21/23 16:24 Last Admin: 09/21/23 17:36 Dose: 2 mg Documented By: SULLY Lorazepam (Lorazepam 1 Mg/1 Ml Syr Ed Inj Use) 2 mg IV ONE STA Stop: 09/21/23 20:25 Last Admin: 09/21/23 21:38 Dose: 2 mg Documented By: BEV Nicotine (Nicotine 14 Mg/24 Hr Patch) 14 mg TD NOW STA Stop: 09/21/23 20:18 Last Admin: 09/21/23 22:59 Dose: 14 mg Documented By: BEV Imaging Data Radiologist's Impression: Chest X-Ray 09/21/23 15:25 SINGLE VIEW CHEST CLINICAL HISTORY: Atypical chest pain FINDINGS: A PA chest radiograph is compared to study dated 04/20/2015. The cardiomediastinal silhouette is top normal for projection. There are dependent airspace opacities. No large pleural effusion or pneumothorax is seen. The bony thorax is grossly intact. IMPRESSION: Dependent airspace opacities could represent atelectasis versus a mild infectious/inflammatory pneumonitis. Clinical correlation will be required and radiographic follow-up to resolution is recommended. ACT 112: Negative or not required by law. Electronically signed by: Gerson Chun M.D. 09/21/2023 4:06 PM Abdomen/Pelvis CT 09/21/23 16:22 CT ANGIOGRAM OF THE CHEST; CT SCAN OF THE ABDOMEN AND PELVIS WITH IV CONTRAST CLINICAL HISTORY: Atypical chest pain. Dyspnea. Bloating. COMPARISON STUDY: Chest x-ray dated 09/21/2023. Abdominal ultrasound dated 04/24/2017. TECHNIQUE: Following the IV administration of 118 of Optiray 320, CT angiogram of the chest is performed from the upper abdomen to the thoracic inlet utilizing the pulmonary embolus protocol. Images are reviewed in the axial, sagittal, coronal planes. 3-D MIPS images are created and assessed. Subsequently, CT scan of the abdomen and pelvis was performed from the lung bases to the proximal femora. Images are reviewed in the axial, sagittal, and coronal planes. IV contrast was administered without complication. A dose lowering technique was utilized adhering to the principles of ALARA. CT DOSE: 2512.4 mGy.cm FINDINGS: CHEST: Thyroid: Imaged portions of the thyroid gland are normal in size and attenuation. Thoracic aorta: The thoracic aorta is normal in caliber and demonstrates standard 3-vessel arch anatomy. No dissection is seen. Pulmonary vasculature: There is suboptimal contrast opacification of the pulmonary arteries. The pulmonary trunk is normal in caliber. There are no filling defects identified in the main, lobar, or segmental pulmonary arteries to indicate pulmonary embolus. Heart: The heart is normal in size and without pericardial effusion. Lungs and pleural spaces: The lungs and pleural spaces are clear noting dependent atelectasis. The trachea and central airways are patent. Mediastinum: There is no mediastinal lymphadenopathy. Bessie: Clear. Axillae: There is no axillary lymphadenopathy. Bony thorax: No lytic or blastic lesions are identified. ABDOMEN AND PELVIS: Liver: The contrast-enhanced liver is enlarged, measuring 25.7 cm in length. The liver demonstrates diffuse reduced attenuation indicating severe steatosis. Fatty sparing is noted adjacent to the gallbladder fossa. There is no intrahepatic biliary ductal dilatation. The hepatic veins and portal veins are patent. Gallbladder: Unremarkable. Spleen: The spleen is enlarged measuring 15.4 cm in length. Pancreas: Unremarkable. Adrenal glands: Unremarkable. Kidneys: The contrast enhanced kidneys are normal in size and without hydronephrosis. The kidneys enhance symmetrically. Abdominal vasculature: The abdominal aorta is normal in course and caliber. Bowel: No bowel obstruction is seen. Residual enteric contrast is suggested in the right colon. The appendix is well-visualized and normal. Peritoneum: There is no intraperitoneal free air or abdominal ascites. There is a fat-containing umbilical hernia with mild surrounding infiltration. Lymphadenopathy: None. Pelvic viscera: The bladder, prostate, and seminal vesicles are normal as visualized. Skeletal structures: No lytic or blastic lesions are seen. IMPRESSION: 1. There is no evidence of pulmonary embolus in the main, lobar, or segmental pulmonary arteries. 2. The lungs are clear. 3. No acute infectious or inflammatory findings are identified in the abdomen or pelvis. 4. Hepatomegaly and severe hepatic steatosis. 5. There is a fat-containing umbilical hernia with mild surrounding infiltration. Correlate clinically. 6 Splenomegaly. 7. Additional findings as above. ACT 112: Negative or not required by law. Electronically signed by: Gerson Chun M.D. 09/21/2023 7:12 PM Chest CTA 09/21/23 16:22 CT ANGIOGRAM OF THE CHEST; CT SCAN OF THE ABDOMEN AND PELVIS WITH IV CONTRAST CLINICAL HISTORY: Atypical chest pain. Dyspnea. Bloating. COMPARISON STUDY: Chest x-ray dated 09/21/2023. Abdominal ultrasound dated 04/24/2017. TECHNIQUE: Following the IV administration of 118 of Optiray 320, CT angiogram of the chest is performed from the upper abdomen to the thoracic inlet utilizing the pulmonary embolus protocol. Images are reviewed in the axial, sagittal, coronal planes. 3-D MIPS images are created and assessed. Subsequently, CT scan of the abdomen and pelvis was performed from the lung bases to the proximal femora. Images are reviewed in the axial, sagittal, and coronal planes. IV contrast was administered without complication. A dose lowering technique was utilized adhering to the principles of ALARA. CT DOSE: 2512.4 mGy.cm FINDINGS: CHEST: Thyroid: Imaged portions of the thyroid gland are normal in size and attenuation. Thoracic aorta: The thoracic aorta is normal in caliber and demonstrates standard 3-vessel arch anatomy. No dissection is seen. Pulmonary vasculature: There is suboptimal contrast opacification of the pulmonary arteries. The pulmonary trunk is normal in caliber. There are no filling defects identified in the main, lobar, or segmental pulmonary arteries to indicate pulmonary embolus. Heart: The heart is normal in size and without pericardial effusion. Lungs and pleural spaces: The lungs and pleural spaces are clear noting dependent atelectasis. The trachea and central airways are patent. Mediastinum: There is no mediastinal lymphadenopathy. Bessie: Clear. Axillae: There is no axillary lymphadenopathy. Bony thorax: No lytic or blastic lesions are identified. ABDOMEN AND PELVIS: Liver: The contrast-enhanced liver is enlarged, measuring 25.7 cm in length. The liver demonstrates diffuse reduced attenuation indicating severe steatosis. Fatty sparing is noted adjacent to the gallbladder fossa. There is no intrahepatic biliary ductal dilatation. The hepatic veins and portal veins are patent. Gallbladder: Unremarkable. Spleen: The spleen is enlarged measuring 15.4 cm in length. Pancreas: Unremarkable. Adrenal glands: Unremarkable. Kidneys: The contrast enhanced kidneys are normal in size and without hydronephrosis. The kidneys enhance symmetrically. Abdominal vasculature: The abdominal aorta is normal in course and caliber. Bowel: No bowel obstruction is seen. Residual enteric contrast is suggested in the right colon. The appendix is well-visualized and normal. Peritoneum: There is no intraperitoneal free air or abdominal ascites. There is a fat-containing umbilical hernia with mild surrounding infiltration. Lymphadenopathy: None. Pelvic viscera: The bladder, prostate, and seminal vesicles are normal as visualized. Skeletal structures: No lytic or blastic lesions are seen. IMPRESSION: 1. There is no evidence of pulmonary embolus in the main, lobar, or segmental pulmonary arteries. 2. The lungs are clear. 3. No acute infectious or inflammatory findings are identified in the abdomen or pelvis. 4. Hepatomegaly and severe hepatic steatosis. 5. There is a fat-containing umbilical hernia with mild surrounding infiltration. Correlate clinically. 6 Splenomegaly. 7. Additional findings as above. ACT 112: Negative or not required by law. Electronically signed by: Gerson Chun M.D. 09/21/2023 7:12 PM Discharge Plan Visit Data Chief Complaint: Chest Pain Stated Complaint: SOB, CHEST PAIN ED Provider: Gerson Laguerre Discharge Problem: SOB (shortness of breath), Alcohol withdrawal, Palpitations, Pedal edema, Elevated liver enzymes, Weight gain, Hypomagnesemia Patient Disposition: Admitted As Inpatient Condition: Fair Discharge Instructions Interventions: ED Discharge Assessment Last Done: 09/21/23 21:05 Discharge Problem: Alcohol withdrawal Qualifiers: Complication of substance-induced condition: uncomplicated Qualified Code(s): F 10.930 - Alcohol use, unspecified with withdrawal, uncomplicated
[2023-09-21 16:42] LABS: Thyroid Stimulating Hormone 1.508 uIu/ml (0.300-4.500)
[2023-09-21 17:15] LABS: Alanine Aminotransferase 248 U/L (7-52); BUN Creatinine Ratio 9.2 (10-20); Bilirubin,Total 1.9 mg/dl (0.2-1.0); Blood Urea Nitrogen 7 mg/dl (6-23); Calcium 9.1 mg/dl (8.6-10.3); Carbon Dioxide 22 mmol/L (21-32); Chloride 96 mmol/L (98-107); Est GFR (African American) 132.3 ml/min; Est GFR (Non-African American) 114.1 ml/min; Glucose 129 mg/dl (70-99(Fasting)); Total Protein 7.9 gm/dl (6.0-8.3)
[2023-09-21 17:16] LABS: Partial Thromboplastin Ratio 0.9; Partial Thromboplastin Time 24 Seconds (21-31); Prothrombin Time 11.3 Seconds (9.0-12.0)
[2023-09-21] MEDS: MULTI-VITAMIN INFUSION 10 ML, THIAMINE HCL 100 MG, FOLIC ACID 1 MG in SODIUM CHLORIDE 0... IV ONE (17:32)
[2023-09-21] MEDS: LORazepam 1 MG/1 ML SYR ED Inj Use IV STA ×2 (17:36→21:38)
--- NOTE | 2023-09-21 17:41 | Electrocardiogram Report ---
Test Reason : Blood Pressure : / mmHG Vent. Rate : 108 BPM Atrial Rate : 108 BPM P-R Int : 176 ms QRS Dur : 110 ms QT Int : 354 ms P-R-T Axes : 045 -42 028 degrees QTc Int : 474 ms Sinus tachycardia Possible Left atrial enlargement Left axis deviation Incomplete right bundle branch block Abnormal ECG When compared with ECG of 09-JUL-2012 02:47, QRS axis Shifted left Confirmed by King Albarran ([id number]) on 09/21/2023 5:41:15 PM Referred By: Confirmed By:Danny Albarran
[2023-09-21] MEDS: OPTIRAY 350 500ml IV ONE (17:53)
[2023-09-21 18:01] LABS: Albumin Level 3.4 gm/dl (3.4-5.0); Magnesium 1.5 mg/dl (1.7-2.4); Potassium 4.1 mmol/L (3.5-5.1)
[2023-09-21] MEDS: MAGNESIUM SULFATE / D5W 1 GM/100 ML BAG IV STA (18:25)
--- NOTE | 2023-09-21 19:13 | CT Scan Report ---
CT ANGIOGRAM OF THE CHEST; CT SCAN OF THE ABDOMEN AND PELVIS WITH IV CONTRAST CLINICAL HISTORY: Atypical chest pain. Dyspnea. Bloating. COMPARISON STUDY: Chest x-ray dated 09/21/2023. Abdominal ultrasound dated 04/24/2017. TECHNIQUE: Following the IV administration of 118 of Optiray 320, CT angiogram of the chest is perfor med from the upper abdomen to the thoracic inlet utilizing the pulmonary embolus protocol. Images are reviewed in the axial, sagittal, coronal planes. 3-D MIPS images are created and assessed. Subsequen tly, CT scan of the abdomen and pelvis was performed from the lung bases to the proximal femora. Imag es are reviewed in the axial, sagittal, and coronal planes. IV contrast was administered without comp lication. A dose lowering technique was utilized adhering to the principles of ALARA. CT DOSE: 2512.4 mGy.cm FINDINGS: CHEST: Thyroid: Imaged portions of the thyroid gland are normal in size and attenuation. Thoracic aorta: The thoracic aorta is normal in caliber and demonstrates standard 3-vessel arch anato my. No dissection is seen. Pulmonary vasculature: There is suboptimal contrast opacification of the pulmonary arteries. The pulm onary trunk is normal in caliber. There are no filling defects identified in the main, lobar, or segm ental pulmonary arteries to indicate pulmonary embolus. Heart: The heart is normal in size and without pericardial effusion. Lungs and pleural spaces: The lungs and pleural spaces are clear noting dependent atelectasis. The tr achea and central airways are patent. Mediastinum: There is no mediastinal lymphadenopathy. Bessie: Clear. Axillae: There is no axillary lymphadenopathy. Bony thorax: No lytic or blastic lesions are identified. ABDOMEN AND PELVIS: Liver: The contrast-enhanced liver is enlarged, measuring 25.7 cm in length. The liver demonstrates d iffuse reduced attenuation indicating severe steatosis. Fatty sparing is noted adjacent to the gallbl adder fossa. There is no intrahepatic biliary ductal dilatation. The hepatic veins and portal veins a re patent. Gallbladder: Unremarkable. Spleen: The spleen is enlarged measuring 15.4 cm in length. Pancreas: Unremarkable. Adrenal glands: Unremarkable. Kidneys: The contrast enhanced kidneys are normal in size and without hydronephrosis. The kidneys enh ance symmetrically. Abdominal vasculature: The abdominal aorta is normal in course and caliber. Bowel: No bowel obstruction is seen. Residual enteric contrast is suggested in the right colon. The a ppendix is well-visualized and normal. Peritoneum: There is no intraperitoneal free air or abdominal ascites. There is a fat-containing umbi lical hernia with mild surrounding infiltration. Lymphadenopathy: None. Pelvic viscera: The bladder, prostate, and seminal vesicles are normal as visualized. Skeletal structures: No lytic or blastic lesions are seen. IMPRESSION: 1. There is no evidence of pulmonary embolus in the main, lobar, or segmental pulmonary arteries. 2. The lungs are clear. 3. No acute infectious or inflammatory findings are identified in the abdomen or pelvis. 4. Hepatomegaly and severe hepatic steatosis. 5. There is a fat-containing umbilical hernia with mild surrounding infiltration. Correlate clinicall y. 6 Splenomegaly. 7. Additional findings as above. ACT 112: Negative or not required by law. Electronically signed by: Gerson Chun M.D. 09/21/2023 7:12 PM
[2023-09-21] MEDS ORDERED: KETOROLAC TROMETHAMINE 15 MG/ML VIAL IV PRN (20:22)
--- NOTE | 2023-09-21 20:26 | History & Physical Report ---
Date of Service September 21, 2023 Assessment & Plan (1) Alcohol withdrawal: (2) Hepatomegaly: (3) Tobacco abuse: (4) Alcohol use disorder, moderate, dependence: (5) Hepatic steatosis: (6) Splenomegaly: (7) Abnormal LFTs: (8) Obesities, morbid: (9) Opioid use disorder in remission: Plan Alcohol withdrawal syndrome/alcohol use disorder- Averaging 12 beers daily, with last intake 24 hours ago Add an alcohol level urine drug screen the emergency department laboratories Give lorazepam 2 mg IV now and clonidine 0.2 mg p.o. now MICAH as protocol with IV Ativan Admit to telemetry Zofran 4 mg IV every 6 hours as needed Clonidine 0.2 mg p.o. twice daily Thiamine 100 mg IV daily Folic acid 1 mg IV daily Given a banana bag in the ED NSS + KCl 20 mill equivalents at 100 mL/h x 1 L Toradol 15 mg IV every 6 hours as needed for mild pain or fever. Avoiding acetaminophen due to abnormal LFTs Hypomagnesemia- Magnesium 1.5 on admission Give a total of 2 g of magnesium sulfate IV, recheck laboratories in a.m. Alcoholic hepatitis/hepatomegaly/severe hepatic steatosis/splenomegaly/- AST 464, ALT 248, alkaline phosphatase 213 and total bilirubin 1.9 INR 1.0 Likely has portal hypertension Follow laboratories serially in the morning Alcohol cessation counseling Tobacco abuse- Start nicotine patch this evening Tobacco cessation counseling Narcotic use disorder- Continue buprenorphine-naloxone twice daily History of Present Illness Chief Complaint: The patient presents to the emergency department with concerns regarding alcohol withdrawal, reporting that he has been drinking 12 beers daily for the past 6 months and is concerned about increasing abdominal distention Primary Care Provider: SUZANNE Joseph The patient is a 38-year-old male with a past medical history including alcohol use disorder, morbid obesity, tobacco abuse, opioid use disorder in remission, history of bath salt overdose and anxiety. He presents to the emergency department with concerns regarding alcohol withdrawal, averaging 12 beers daily over the past 6 months, with no intake for about 24 hours at this time. He is also concerned about increasing abdominal size, but denies any nausea or vomiting. Allergies Allergy/AdvReac Type Severity Reaction Status Date / Time No Known Allergies Allergy Unverified 09/21/23 19:48 Home Medications Medication Instructions Recorded Confirmed Type buprenorphine 8 mg-naloxone 2 mg 0.5 tab sublingual BID 09/21/23 09/21/23 History sublingual tablet Past Med/Surg History Medical History (Updated 09/21/23 @ 21:58 by Jae Reyes MD) Abnormal LFTs Alcohol withdrawal Ruptured epidermal cyst Complete tear, knee, anterior cruciate ligament (07/09/12) Surgical History (Updated 09/15/22 @ 09:29 by Sandra Rojas RN) History of removal of cyst (09/12/22) Skin, right shoulder (excision): In office procedure Dr. Lara - Changes consistent with a ruptured, markedly inflamed epidermal cyst with associated fat necrosis are seen. - Focal abscess formation is noted. - See comment. [place] teeth extracted S/P knee surgery S/P shoulder surgery Family History Mother Breast cancer Clotting disorder Stroke Grandfather (Paternal) Colorectal cancer Denies family history of Ovarian cancer Prostate cancer Myocardial infarction Social History Smoking Status: Current every day smoker Tobacco Type: E-cigarettes / Vaping Age Started Using Tobacco: 31; Second Hand Exposure: Yes; Do You Dip or Chew Tobacco: Yes; Hx Alcohol Use: Yes Alcohol type: hard liquor Hx Substance Use: No Preferred Language: [place]au[place] Communication Ability: Effective Ager Operator Required: No Beliefs That Will Affect Care: Spiritual marital status: Single Current Living Situation: Family Current Living Situation Comment: Lives Girlfriend and 9 yo son current occupational status: employed and unemployed current occupation: Contruction How many Children do You have: 1 Feels Safe at Home: Yes Childhood Exposure to Second-Hand Smoke: Yes Diet: regular during the past year weight has: increased > 10 lbs Dental Care, Regularly: No Physical Activity Frequency: 3-4 Times per Week Seatbelt Use: always Sunscreen Use: No Assistive Devices: None Review of Systems Review of Systems: The patient denies chest pain, palpitations, shortness of breath, dyspnea on exertion, cough, lower extremity swelling, sore throat, fevers, chills, sweats, nausea, vomiting, diarrhea , constipation, abdominal pain, pelvic pain, blood in urine or stool, dysuria, urinary frequency or urgency, lightheadedness, dizziness, headache, memory loss, loss of consciousness, rash, abnormal bruising or bleeding, imbalance, focal or generalized weakness, numbness or tingling in arms or legs, generalized arthralgias or myalgias, back or neck pain, or night sweats. The review of systems is otherwise negative other than for that already noted above, and at least 10 systems have been reviewed. Physical Exam Physical Exam: The patient is awake, alert and oriented 3, well developed and well nourished, normocephalic and atraumatic, sitting upright in bed and in no acute distress. HEENT--PERRL, EOMI, mucous membranes and oropharynx normal. Neck--supple. No JVD. No bruits. Thyroid normal, trachea midline, no adenopathy. Heart--normal S1 and S2. No murmurs, rubs or gallops. Lungs--clear bilaterally, no respiratory distress, no accessory muscle use. Abdomen--normal bowel sounds and soft. Nontender. Nondistended. Morbidly obese Extremities--No edema. Dermatologic--normal skin turgor, normal color, no abnormal lymph nodes, no rash. Neurologic--cranial nerves II through XII grossly intact. Rheumatologic--normal range of motion. Psychiatric--normal affect. Results & Data Results & Data Vital Signs (Past 12 Hours) Vital Signs Temp Pulse Pulse Resp BP BP Pulse Ox 09/21/23 19:02 95 H 22 133/94 92 09/21/23 18:05 108 H 17 133/107 H 93 09/21/23 17:38 105 H 19 152/114 H 96 09/21/23 17:11 101 H 18 152/114 H 94 09/21/23 16:10 107 H 09/21/23 16:03 116 H 23 92 09/21/23 15:22 36.6 C 108 H 20 201/110 H 94 O2 Del Method 09/21/23 19:02 Room Air 09/21/23 18:05 Room Air 09/21/23 17:38 Room Air 09/21/23 17:11 Room Air 09/21/23 16:10 09/21/23 16:03 Room Air 09/21/23 15:22 Room Air Laboratory Results Laboratory Results WBC 7.80 K/ul (4.8-10.8) 09/21/23 15:50 RBC 4.77 M/uL (4.70-6.10) 09/21/23 15:50 Hgb 15.7 g/dl (14.0-18.0) 09/21/23 15:50 Hct 44.0 % (42.0-52.0) 09/21/23 15:50 MCV 92.2 fL (80.0-100.0) 09/21/23 15:50 MCH 32.9 pg (25.0-34.0) 09/21/23 15:50 MCHC 35.7 g/dL (32.0-36.0) 09/21/23 15:50 RDW Std Deviation 44.4 fL (36.4-46.3) 09/21/23 15:50 RDW Coeff of Vanesa 13.0 % (11.5-14.5) 09/21/23 15:50 Plt Count 171 K/uL (130-400) 09/21/23 15:50 MPV 10.0 fL (9.4-12.4) 09/21/23 15:50 Immature Gran % (Auto) 0.5 % 09/21/23 15:50 Neut % (Auto) 75.9 % 09/21/23 15:50 Lymph % (Auto) 14.9 % 09/21/23 15:50 [place] % (Auto) 7.8 % 09/21/23 15:50 Eos % (Auto) 0.4 % 09/21/23 15:50 Baso % (Auto) 0.5 % 09/21/23 15:50 Neut # (Auto) 5.92 K/uL (1.40-6.50) 09/21/23 15:50 Lymph # (Auto) 1.16 K/uL (1.20-3.40) L 09/21/23 15:50 [place] # (Auto) 0.61 K/uL (0.11-0.59) H 09/21/23 15:50 Eos # (Auto) 0.03 K/uL (0.00-0.50) 09/21/23 15:50 Baso # (Auto) 0.04 K/uL (0.00-0.20) 09/21/23 15:50 Immature Gran # (Auto) 0.04 K/uL (0.01-0.20) 09/21/23 15:50 PT 11.3 Seconds (9.0-12.0) 09/21/23 15:50 INR 1.0 (0.9-1.1) 09/21/23 15:50 APTT 24 Seconds (21-31) 09/21/23 15:50 PTT Ratio 0.9 09/21/23 15:50 Sodium 136 mmol/L (136-145) 09/21/23 17:18 Potassium 4.1 mmol/L (3.5-5.1) 09/21/23 17:18 Chloride 96 mmol/L (98-107) L 09/21/23 15:50 Carbon Dioxide 22 mmol/L (21-32) 09/21/23 15:50 Anion Gap TNP 09/21/23 15:50 BUN 7 mg/dl (6-23) 09/21/23 15:50 Creatinine 0.76 mg/dl (0.6-1.4) 09/21/23 15:50 Est Cr Clr Drug Dosing Not Reportable 09/21/23 15:50 Est GFR ( Amer) 132.3 ml/min 09/21/23 15:50 Est GFR (Non-Af Amer) 114.1 ml/min 09/21/23 15:50 BUN/Creatinine Ratio 9.2 (10-20) L 09/21/23 15:50 Glucose 129 mg/dl (70-99(Fasting)) H 09/21/23 15:50 Calcium 9.1 mg/dl (8.6-10.3) 09/21/23 15:50 Magnesium 1.5 mg/dl (1.7-2.4) L 09/21/23 17:18 Total Bilirubin 1.9 mg/dl (0.2-1.0) H 09/21/23 15:50 AST 464 U/L (13-39) H 09/21/23 17:18 ALT 248 U/L (7-52) H 09/21/23 15:50 Alkaline Phosphatase 213 U/L (34-104) H 09/21/23 17:18 Troponin I High Sens 13.5 pg/ml (0-20) 09/21/23 15:50 Total Protein 7.9 gm/dl (6.0-8.3) 09/21/23 15:50 Albumin 3.4 gm/dl (3.4-5.0) 09/21/23 17:18 Globulin TNP 09/21/23 15:50 Albumin/Globulin Ratio TNP 09/21/23 15:50 TSH 1.508 uIu/ml (0.300-4.500) 09/21/23 15:50 Impressions Chest X-Ray 09/21/23 15:25 SINGLE VIEW CHEST CLINICAL HISTORY: Atypical chest pain FINDINGS: A PA chest radiograph is compared to study dated 04/20/2015. The cardiomediastinal silhouette is top normal for projection. There are dependent airspace opacities. No large pleural effusion or pneumothorax is seen. The bony thorax is grossly intact. IMPRESSION: Dependent airspace opacities could represent atelectasis versus a mild infectious/inflammatory pneumonitis. Clinical correlation will be required and radiographic follow-up to resolution is recommended. ACT 112: Negative or not required by law. Electronically signed by: Gerson Chun M.D. 09/21/2023 4:06 PM Abdomen/Pelvis CT 09/21/23 16:22 CT ANGIOGRAM OF THE CHEST; CT SCAN OF THE ABDOMEN AND PELVIS WITH IV CONTRAST CLINICAL HISTORY: Atypical chest pain. Dyspnea. Bloating. COMPARISON STUDY: Chest x-ray dated 09/21/2023. Abdominal ultrasound dated 04/24/2017. TECHNIQUE: Following the IV administration of 118 of Optiray 320, CT angiogram of the chest is performed from the upper abdomen to the thoracic inlet utilizing the pulmonary embolus protocol. Images are reviewed in the axial, sagittal, coronal planes. 3-D MIPS images are created and assessed. Subsequently, CT scan of the abdomen and pelvis was performed from the lung bases to the proximal femora. Images are reviewed in the axial, sagittal, and coronal planes. IV co ntrast was administered without complication. A dose lowering technique was utilized adhering to the principles of ALARA. CT DOSE: 2512.4 mGy.cm FINDINGS: CHEST: Thyroid: Imaged portions of the thyroid gland are normal in size and attenuation. Thoracic aorta: The thoracic aorta is normal in caliber and demonstrates standard 3-vessel arch anatomy. No dissection is seen. Pulmonary vasculature: There is suboptimal contrast opacification of the pulmonary arteries. The pulmonary trunk is normal in caliber. There are no filling defects identified in the main, lobar, or segmental pulmonary arteries to indicate pulmonary embolus. Heart: The heart is normal in size and without pericardial effusion. Lungs and pleural spaces: The lungs and pleural spaces are clear noting dependent atelectasis. The trachea and central airways are patent. Mediastinum: There is no mediastinal lymphadenopathy. Bessie: Clear. Axillae: There is no axillary lymphadenopathy. Bony thorax: No lytic or blastic lesions are identified. ABDOMEN AND PELVIS: Liver: The contrast-enhanced liver is enlarged, measuring 25.7 cm in length. The liver demonstrates diffuse reduced attenuation indicating severe steatosis. Fatty sparing is noted adjacent to the gallbladder fossa. There is no intrahepatic biliary ductal dilatation. The hepatic veins and portal veins are patent. Gallbladder: Unremarkable. Spleen: The spleen is enlarged measuring 15.4 cm in length. Pancreas: Unremarkable. Adrenal glands: Unremarkable. Kidneys: The contrast enhanced kidneys are normal in size and without hydron ephrosis. The kidneys enhance symmetrically. Abdominal vasculature: The abdominal aorta is normal in course and caliber. Bowel: No bowel obstruction is seen. Residual enteric contrast is suggested in the right colon. The appendix is well-visualized and normal. Peritoneum: There is no intraperitoneal free air or abdominal ascites. There is a fat-containing umbilical hernia with mild surrounding infiltration. Lymphadenopathy: None. Pelvic viscera: The bladder, prostate, and seminal vesicles are normal as visualized. Skeletal structures: No lytic or blastic lesions are seen. IMPRESSION: 1. There is no evidence of pulmonary embolus in the main, lobar, or segmental pulmonary arteries. 2. The lungs are clear. 3. No acute infectious or inflammatory findings are identified in the abdomen or pelvis. 4. Hepatomegaly and severe hepatic steatosis. 5. There is a fat-containing umbilical hernia with mild surrounding infiltration. Correlate clinically. 6 Splenomegaly. 7. Additional findings as above. ACT 112: Negative or not required by law. Electronically signed by: Gerson Chun M.D. 09/21/2023 7:12 PM Chest CTA 09/21/23 16:22 CT ANGIOGRAM OF THE CHEST; CT SCAN OF THE ABDOMEN AND PELVIS WITH IV CONTRAST CLINICAL HISTORY: Atypical chest pain. Dyspnea. Bloating. COMPARISON STUDY: Chest x-ray dated 09/21/2023. Abdominal ultrasound dated 04/24/2017. TECHNIQUE: Following the IV administration of 118 of Optiray 320, CT angiogram of the chest is performed from the upper abdomen to the thoracic inlet utilizing the pulmonary embolus protocol. Images are reviewed in the axial, sagittal, coronal planes. 3-D MIPS images are created and assessed. Subsequently, CT scan of the abdomen and pelvis was performed from the lung bases to the proximal femora. Images are reviewed in the axial, sagittal, and coronal planes. IV contrast was administered without complication. A dose lowering technique was utilized adhering to the principles of ALARA. CT DOSE: 2512.4 mGy.cm FINDINGS: CHEST: Thyroid: Imaged portions of the thyroid gland are normal in size and attenuation. Thoracic aorta: The thoracic aorta is normal in caliber and demonstrates standard 3-vessel arch anatomy. No dissection is seen. Pulmonary vasculature: There is suboptimal contrast opacification of the pulmonary arteries. The pulmonary trunk is normal in caliber. There are no filling defects identified in the main, lobar, or segmental pulmonary arteries to indicate pulmonary embolus. Heart: The heart is normal in size and without pericardial effusion. Lungs and pleural spaces: The lungs and pleural spaces are clear noting dependent atelectasis. The trachea and central airways are patent. Mediastinum: There is no mediastinal lymphadenopathy. Bessie: Clear. Axillae: There is no axillary lymphadenopathy. Bony thorax: No lytic or blastic lesions are identified. ABDOMEN AND PELVIS: Liver: The contrast-enhanced liver is enlarged, measuring 25.7 cm in length. The liver demonstrates diffuse reduced attenuation indicating severe steatosis. Fatty sparing is noted adjacent to the gallbladder fossa. There is no intrahepatic biliary ductal dilatation. The hepatic veins and portal veins are patent. Gallbladder: Unremarkable. Spleen: The spleen is enlarged measuring 15.4 cm in length. Pancreas: Unremarkable. Adrenal glands: Unremarkable. Kidneys: The contrast enhanced kidneys are normal in size and without hydronephrosis. The kidneys enhance symmetrically. Abdominal vasculature: The abdominal aorta is normal in course and caliber. Bowel: No bowel obstruction is seen. Residual enteric contrast is suggested in the right colon. The appendix is well-visualized and normal. Peritoneum: There is no intraperitoneal free air or abdominal ascites. There is a fat-containing umbilical hernia with mild surrounding infiltration. Lymphadenopathy: None. Pelvic viscera: The bladder, prostate, and seminal vesicles are normal as visualized. Skeletal structures: No lytic or blastic lesions are seen. IMPRESSION: 1. There is no evidence of pulmonary embolus in the main, lobar, or segmental pulmonary arteries. 2. The lungs are clear. 3. No acute infectious or inflammatory findings are identified in the abdomen or pelvis. 4. Hepatomegaly and severe hepatic steatosis. 5. There is a fat-containing umbilical hernia with mild surrounding infiltration. Correlate clinically. 6 Splenomegaly. 7. Additional findings as above. ACT 112: Negative or not required by law. Electronically signed by: Gerson Chun M.D. 09/21/2023 7:12 PM Code Status & VTE Plan Code Status Full code VTE Prophylaxis Plan VTE Prophylaxis will be ordered: Yes PG Care Time/CCT Total # of Minutes Spent Total Time Spent with Patient: Total time spent is greater than 50% in coordination of care (as documented) at patient's floor/unit and/or counseling patient: Coding Level of Care Code 20222 INT INP/OBS CARE 375MIN Diagnoses Alcohol withdrawal F10.930 Complication of substance-induced condition: uncomplicated Hepatomegaly R16.0 Tobacco abuse Z72.0 Alcohol use disorder, moderate, dependence F10.20 Hepatic steatosis K76.0 Splenomegaly R16.1 Abnormal LFTs R79.89 Obesities, morbid E66.01 Opioid use disorder in remission F11.91 (1) Alcohol withdrawal Complication of substance-induced condition: uncomplicated Qualified Code(s): F10.930 - Alcohol use, unspecified with withdrawal, uncomplicated
[2023-09-21] MEDS ORDERED: LORazepam 3 MG in SYRINGE 1.5 ML IV PRN (21:19)
[2023-09-21] MEDS ORDERED: Ativan IV Alcohol Withdrawal--Active Protocol IV PRN (21:19)
[2023-09-21] MEDS: cloNIDine HCL 0.1 MG TAB PO STA (22:05)
[2023-09-21] MEDS: BUPRENORPHINE/NALOXONE 2/0.5MG 1 TAB SL SCH (22:05)
[2023-09-21] MEDS: MAGNESIUM SULFATE / D5W 1 GM/100 ML BAG IV ONE (22:16)
[2023-09-21] MEDS: NSS + 20MEQ KCL 20 MEQ/1,000 ML BAG IV SCH (22:59)
[2023-09-21] MEDS: NICOTINE 14 MG/24 HR PATCH TD STA (22:59)
[2023-09-22 00:03] LABS: Amphetamines+Metham, Urine Neg (Neg); Barbiturates, Urine Neg (Neg); Benzodiazepine, Urine Pos (Neg); Cocaine, Urine Neg (Neg); MDMA (Ecstacy), Urine Neg (Neg); Marijuana, Urine Neg (Neg); Methadone, Urine Neg (Neg); Opiate, Urine Neg (Neg); Phencyclidine, Urine Neg (Neg)
[2023-09-22] MEDS: LORazepam 1 MG in SYRINGE 0.5 ML IV PRN (01:14)
[2023-09-22 06:33] LABS: Basophils # (auto) 0.02 K/uL (0.00-0.20); Basophils % (auto) 0.3 %; Eosinophils # (auto) 0.13 K/uL (0.00-0.50); Hematocrit (blood only) 41.8 % (42.0-52.0); Hemoglobin 13.9 g/dl (14.0-18.0); Immature Granulocytes # (auto) 0.05 K/uL (0.01-0.20); Immature Granulocytes % (auto) 0.8 %; Lymphocytes # (auto) 1.81 K/uL (1.20-3.40); Lymphocytes % (auto) 27.2 %; Mean Corpuscular Hemoglobin 32.1 pg (25.0-34.0); Mean Corpuscular Hgb Conc 33.3 g/dL (32.0-36.0); Mean Corpuscular Volume 96.5 fL (80.0-100.0); Mean Platelet Volume 9.9 fL (9.4-12.4); Monocytes # (auto) 0.63 K/uL (0.11-0.59); Monocytes % (auto) 9.5 %; Neutrophils # (auto) 4.01 K/uL (1.40-6.50); Neutrophils % (auto) 60.2 %; Platelet Count 133 K/uL (130-400); RDW Coefficient of Variation 13.3 % (11.5-14.5); RDW Standard Deviation 47.8 fL (36.4-46.3); Red Blood Count 4.33 M/uL (4.70-6.10); White Blood Count 6.65 K/ul (4.8-10.8)
[2023-09-22 07:06] LABS: Alanine Aminotransferase 187 U/L (7-52); Albumin Globulin Ratio 0.8 (0.9-2); Albumin Level 3.1 gm/dl (3.4-5.0); Alkaline Phosphatase 192 U/L (34-104); Anion Gap 9 (3-11); BUN Creatinine Ratio 7.6 (10-20); Blood Urea Nitrogen 6 mg/dl (6-23); Calcium 8.4 mg/dl (8.6-10.3); Carbon Dioxide 25 mmol/L (21-32); Chloride 101 mmol/L (98-107); Creatinine Clr Calc Pharmacy 198.2 ml/min; Est GFR (African American) 130.2 ml/min; Est GFR (Non-African American) 112.3 ml/min; Globulin 3.7 gm/dl (2.5-4.0); Glucose 81 mg/dl (70-99(Fasting)); Magnesium 2.1 mg/dl (1.7-2.4); Sodium 135 mmol/L (136-145); Total Protein 6.8 gm/dl (6.0-8.3)
[2023-09-22 07:46] LABS: Potassium 3.7 mmol/L (3.5-5.1)
[2023-09-22] MEDS: cloNIDine HCL 0.1 MG TAB PO SCH (10:30)
[2023-09-22] MEDS: THIAMINE HCL 100 MG in SYRINGE 9 ML IV SCH (10:30)
[2023-09-22] MEDS: FOLIC ACID 1 MG in SYRINGE 9.8 ML IV SCH (10:31)
[2023-09-22] MEDS: NICOTINE 14 MG/24 HR PATCH TD SCH (10:31)
[2023-09-22] MEDS: ONDANSETRON INJ 2 MG/ML 2 ML VIAL IV PRN (11:55)
--- NOTE | 2023-09-22 13:39 | Hospitalist Progress Note ---
Date of Service September 22, 2023 Assessment & Plan (1) Alcohol withdrawal: Plan: acute alcohol withdrawal continues to be in active withdrawal with AWSS 56, remains hypertensive and tachycardic continue monitoring AWSS, as needed IV lorazepam4 mg IV given overnight continue clonidine continue IV fluids and thiamine replacement a.m. CMP and mag check reviewed PDMP and notable for outpatient prescriptions for diazepam, most recently 09/07: 2 mg tablets #14 (2) Abnormal LFTs: Plan: admission labs: AST 464, ALT 248, alkaline phosphatase 213 and total bilirubin 1.9, INR 1.0 alcoholic hepatitis based on labs, appears relatively mild at this time - discussed this with him and counseled effects of alcohol on his liver - monitor a.m. CMP - supportive care, alcohol abstinence (3) Alcohol use disorder, moderate, dependence: Plan: states he intends to quit drinking and plans to attend meetings following this hospitalization - counseled with respect to alcohol cessation, effects of excessive alcohol on his health especially his liver (4) Hepatomegaly: Plan: hepatosplenomegaly related to alcoholic liver disease (5) Tobacco abuse: Plan: Tobacco abuse- nicotine patch this evening Tobacco cessation counseling (6) Hepatic steatosis: (7) Splenomegaly: Plan: related to alcoholic liver disease (8) Obesities, morbid: Plan: BMI 44.9 (9) Opioid use disorder in remission: Plan: opioid use disorder- Continue buprenorphine-naloxone twice daily, confirmed in PDMP Plan Hypomagnesemia- Magnesium 1.5 on admission, replaced with 2 g IV and normal at 2.1 today check mag in a.m. Admission and Anticipated Discharge Date Admission Date: September 21, 2023 Subjective continues to have alcohol withdrawal symptoms with sweats/shakes/anxiety intends to stop drinking and attend meetings just had IV lorazepam prior to my visit this morning Physical Exam 2 Physical Exam: PHYSICAL EXAMINATION Last 24h vital signs reviewed, see documentation in flowsheet General: comfortable appearing, no distress HEENT: Normocephalic, atraumatic, pupils round and equal, sclerae anicteric, no conjunctival injection, moist mucus membranes Lungs: Normal respiratory effort. Clear to auscultation bilaterally. No RRW Heart: Regular rate and rhythm, no murmurs. No JVD Abdomen: protuberant, Soft, nontender, nondistended. Bowel sounds present. Extremities: Warm, dry, well-perfused. No extremity edema. Neuro: Alert and oriented x 4, face symmetric, moves 4 extremities well, mildly tremulous Psych: Normal affect and behavior Results & Data Results & Data Vital Signs (Past 12 Hours) Vital Signs Temp Pulse Pulse Resp BP Pulse Ox O2 Del Method 09/22/23 11:23 36.9 C 99 H 19 146/97 H 94 Room Air 09/22/23 08:00 36.8 C 88 16 152/74 H 95 Room Air 09/22/23 07:00 93 H 09/22/23 03:07 36.8 C 92 H 19 130/104 H 95 Room Air Laboratory Results 09/22/23 06:02 09/22/23 07:17 PG Care Time/CCT Total # of Minutes Spent Total Time Spent with Patient: Total time spent is greater than 50% in coordination of care (as documented) at patient's floor/unit and/or counseling patient: Coding Level of Care Code 79798 SUB INP/OBS CARE 2/35MIN Diagnoses Alcohol withdrawal F10.930 Complication of substance-induced condition: uncomplicated Abnormal LFTs R79.89 Alcohol use disorder, moderate, dependence F10.20 Hepatomegaly R16.0 Tobacco abuse Z72.0 Hepatic steatosis K76.0 Splenomegaly R16.1 Obesities, morbid E66.01 Opioid use disorder in remission F11.91 (1) Alcohol withdrawal Complication of substance-induced condition: uncomplicated Qualified Code(s): F10.930 - Alcohol use, unspecified with withdrawal, uncomplicated
[2023-09-22] MEDS: LORazepam 2 MG in SYRINGE 1 ML IV PRN (18:25)
[2023-09-23] MEDS: ACETAMINOPHEN 500 MG TAB PO PRN (05:03)
[2023-09-23 06:21] LABS: Basophils # (auto) 0.04 K/uL (0.00-0.20); Basophils % (auto) 0.6 %; Eosinophils % (auto) 2.9 %; Hematocrit (blood only) 40.4 % (42.0-52.0); Hemoglobin 12.9 g/dl (14.0-18.0); Immature Granulocytes # (auto) 0.08 K/uL (0.01-0.20); Immature Granulocytes % (auto) 1.2 %; Lymphocytes # (auto) 1.59 K/uL (1.20-3.40); Lymphocytes % (auto) 22.9 %; Mean Corpuscular Hemoglobin 31.6 pg (25.0-34.0); Mean Corpuscular Hgb Conc 31.9 g/dL (32.0-36.0); Mean Platelet Volume 10.2 fL (9.4-12.4); Monocytes # (auto) 0.67 K/uL (0.11-0.59); Monocytes % (auto) 9.7 %; Neutrophils # (auto) 4.35 K/uL (1.40-6.50); Neutrophils % (auto) 62.7 %; Platelet Count 127 K/uL (130-400); RDW Coefficient of Variation 13.2 % (11.5-14.5); RDW Standard Deviation 48.5 fL (36.4-46.3); Red Blood Count 4.08 M/uL (4.70-6.10); White Blood Count 6.93 K/ul (4.8-10.8)
[2023-09-23 06:30] LABS: Albumin Globulin Ratio 0.9 (0.9-2); Albumin Level 3.1 gm/dl (3.4-5.0); BUN Creatinine Ratio 9.4 (10-20); Bilirubin,Total 2.1 mg/dl (0.2-1.0); Calcium 8.3 mg/dl (8.6-10.3); Creatinine Clr Calc Pharmacy 183.6 ml/min; Est GFR (African American) 126.3 ml/min; Globulin 3.6 gm/dl (2.5-4.0); Potassium 3.6 mmol/L (3.5-5.1); Total Protein 6.7 gm/dl (6.0-8.3)
--- NOTE | 2023-09-23 07:30 | Hospitalist Progress Note ---
Date of Service September 23, 2023 Assessment & Plan (1) Alcohol withdrawal: Plan: acute alcohol withdrawal continues to be in active withdrawal with AWSS 5's overnight, less hypertensive, remains tachycardic, 2 mg IV lorazepam x 4 given overnight continue monitoring AWSS, as needed IV lorazepam continue clonidine add gabappentin 600 mg tid continue IV fluids and thiamine replacement a.m. CMP and mag check reviewed PDMP and notable for outpatient prescriptions for diazepam, most recently 09/07: 2 mg tablets #14 (2) Abnormal LFTs: Plan: admission labs: AST 464, ALT 248, alkaline phosphatase 213 and total bilirubin 1.9, INR 1.0 alcoholic hepatitis based on labs, appears relatively mild at this time - discussed this with him and counseled effects of alcohol on his liver - 09/22: bilirubin remains flat as expected, AST/ALT/Alk phos improved since admission - supportive care, alcohol abstinence (3) Alcohol use disorder, moderate, dependence: Plan: states he intends to quit drinking and plans to attend meetings following this hospitalization - counseled with respect to alcohol cessation, effects of excessive alcohol on his health especially his liver (4) Hepatomegaly: Plan: hepatosplenomegaly related to alcoholic liver disease (5) Tobacco abuse: Plan: Tobacco abuse- nicotine patch this evening Tobacco cessation counseling (6) Hepatic steatosis: (7) Splenomegaly: Plan: related to alcoholic liver disease mild thrombocytopenia 09/22 splenomegaly and/or toxic effect of alcohol on bone marrow (8) Obesities, morbid: Plan: BMI 44.9 (9) Opioid use disorder in remission: Plan: opioid use disorder- Continue buprenorphine-naloxone twice daily, confirmed in PDMP Plan Hypomagnesemia- Magnesium 1.5 on admission, replaced with 2 g IV and normal at 2.1 today check mag in a.m. Admission and Anticipated Discharge Date Admission Date: September 21, 2023 Subjective continues to have active alcohol withdrawal sx with tremor, sweats, headache, tachycardia received lorazepam dose shortly prior to me rounding Physical Exam 2 Physical Exam: PHYSICAL EXAMINATION Last 24h vital signs reviewed, see documentation in flowsheet exam unchanged 09/22: General: comfortable appearing, no distress HEENT: Normocephalic, atraumatic, pupils round and equal, sclerae anicteric, no conjunctival injection, moist mucus membranes Lungs: Normal respiratory effort. Clear to auscultation bilaterally. No RRW Heart: Regular rate and rhythm, no murmurs. No JVD Abdomen: protuberant, Soft, nontender, nondistended. Bowel sounds present. Extremities: Warm, dry, well-perfused. No extremity edema. Neuro: Alert and oriented x 4, face symmetric, moves 4 extremities well, mildly tremulous Psych: Normal affect and behavior Results & Data Results & Data Vital Signs (Past 12 Hours) Vital Signs Temp Pulse Pulse Resp BP Pulse Ox O2 Del Method 09/23/23 03:08 94 H 09/23/23 02:34 36.8 C 96 H 18 126/98 94 Room Air 09/22/23 22:35 36.8 C 95 H 18 135/90 93 Room Air 09/22/23 19:41 36.9 C 101 H 18 132/108 H 96 Room Air Laboratory Results 09/23/23 05:29 09/23/23 05:29 PG Care Time/CCT Total # of Minutes Spent Total Time Spent with Patient: Total time spent is greater than 50% in coordination of care (as documented) at patient's floor/unit and/or counseling patient: Coding Level of Care Code 94146 SUB INP/OBS CARE 3/50MIN Diagnoses Alcohol withdrawal F10.930 Complication of substance-induced condition: uncomplicated Abnormal LFTs R79.89 Alcohol use disorder, moderate, dependence F10.20 Hepatomegaly R16.0 Tobacco abuse Z72.0 Hepatic steatosis K76.0 Splenomegaly R16.1 Obesities, morbid E66.01 Opioid use disorder in remission F11.91 (1) Alcohol withdrawal Complication of substance-induced condition: uncomplicated Qualified Code(s): F10.930 - Alcohol use, unspecified with withdrawal, uncomplicated
[2023-09-23 15:32] LABS: 7-Aminoclonaz, Confirm NEGATIVE ng/mL (<25); Hydro-Alp Ur, GC/MS NEGATIVE ng/mL (<25); Hydroxyethylflurazepam, Conf NEGATIVE ng/mL (<50); Hydroxymidazolam Ur, GC/MS NEGATIVE ng/mL (<50); Hydroxytriazolam NEGATIVE ng/mL (<50); Lorazepam, Ur GC/MS 499 ng/mL (<50); Nordiazepam, Confirm NEGATIVE ng/mL (<50); Oxazepam Ur, GC/MS NEGATIVE ng/mL (<50); Temazepam, Confirm 212 ng/mL (<50)
[2023-09-23] MEDS: GABAPENTIN 600 MG TAB PO SCH (17:15)
[2023-09-23] MEDS: SENNA 8.6 MG TAB PO PRN (20:56)
[2023-09-23] MEDS: POLYETHYLENE (MIRALAX) 17 GM PACK PO PRN (20:56)
[2023-09-24 06:17] LABS: Basophils # (auto) 0.05 K/uL (0.00-0.20); Basophils % (auto) 0.6 %; Eosinophils # (auto) 0.21 K/uL (0.00-0.50); Eosinophils % (auto) 2.5 %; Hematocrit (blood only) 41.6 % (42.0-52.0); Immature Granulocytes # (auto) 0.15 K/uL (0.01-0.20); Immature Granulocytes % (auto) 1.8 %; Lymphocytes # (auto) 1.69 K/uL (1.20-3.40); Lymphocytes % (auto) 20.4 %; Mean Corpuscular Hemoglobin 31.6 pg (25.0-34.0); Mean Corpuscular Hgb Conc 31.3 g/dL (32.0-36.0); Monocytes # (auto) 0.75 K/uL (0.11-0.59); Neutrophils # (auto) 5.44 K/uL (1.40-6.50); Neutrophils % (auto) 65.7 %; Nucleated RBC # (auto) 0.02 K/uL (0.00-0.12); Nucleated RBC % (auto) 0.2 %; Platelet Count 121 K/uL (130-400); RDW Coefficient of Variation 13.3 % (11.5-14.5); RDW Standard Deviation 49.2 fL (36.4-46.3); Red Blood Count 4.12 M/uL (4.70-6.10); White Blood Count 8.29 K/ul (4.8-10.8)
[2023-09-24 06:36] LABS: Albumin Globulin Ratio 0.9 (0.9-2); Albumin Level 3.2 gm/dl (3.4-5.0); BUN Creatinine Ratio 7.6 (10-20); Bilirubin,Total 1.7 mg/dl (0.2-1.0); Calcium 8.4 mg/dl (8.6-10.3); Creatinine Clr Calc Pharmacy 173.2 ml/min; Est GFR (African American) 120.2 ml/min; Est GFR (Non-African American) 103.7 ml/min; Globulin 3.5 gm/dl (2.5-4.0); Magnesium 1.9 mg/dl (1.7-2.4); Potassium 3.8 mmol/L (3.5-5.1); Total Protein 6.7 gm/dl (6.0-8.3)
[2023-09-24] MEDS ORDERED: LORazepam 1 MG TAB PO PRN (07:45)
[2023-09-24] MEDS ORDERED: Ativan PO Alcohol Withdrawal--Active Protocol PO PRN (07:45)
[2023-09-24] MEDS: LORazepam 1 MG TAB PO PRN ×2 (09:26→14:33)
[2023-09-24] MEDS: chlordiazePOXIDE HCl 25 MG CAP PO ONE (12:40)
--- NOTE | 2023-09-24 14:09 | Hospitalist Progress Note ---
Date of Service September 24, 2023 Assessment & Plan (1) Alcohol withdrawal: Plan: acute alcohol withdrawal continues to be in withdrawal with AWSS still 5's overnight, several doses IV lorazepam overnight, tachycardia improved continue monitoring AWSS, as needed lorazepam - try to change to po dosing today. chlordiazepoxide 50 mg x 1 midday assess whether effective continue clonidine but taper to 0.1 bid cont gabapentin 600 mg tid thiamine to po K, mag wnl today reviewed PDMP and notable for outpatient prescriptions for diazepam, most recently 09/07: 2 mg tablets #14, appears his primary care clinic has been tapering him off. He says that clinic won't fill BZD prescriptions for him any longer and that he would need to see a psychiatrist. encouraged him to establish with mental health provider to treat his anxiety, possible depression counseled alcohol cessation, quit resources have been provided by care coord (2) Abnormal LFTs: Plan: admission labs: AST 464, ALT 248, alkaline phosphatase 213 and total bilirubin 1.9, INR 1.0 alcoholic hepatitis based on labs, appears relatively mild at this time - discussed this with him and counseled effects of alcohol on his liver 09/22, 09/23 - 09/23 bilirubin AST/ALT/Alk phos improved - supportive care, alcohol abstinence (3) Alcohol use disorder, moderate, dependence: Plan: states he intends to quit drinking and plans to attend meetings following this hospitalization - counseled with respect to alcohol cessation, effects of excessive alcohol on his health especially his liver (4) Hepatomegaly: Plan: hepatosplenomegaly related to alcoholic liver disease (5) Tobacco abuse: Plan: Tobacco abuse- nicotine patch Tobacco cessation counseling (6) Hepatic steatosis: (7) Splenomegaly: Plan: related to alcoholic liver disease mild thrombocytopenia 09/22 splenomegaly and/or toxic effect of alcohol on bone marrow (8) Obesities, morbid: Plan: BMI 44.9 (9) Opioid use disorder in remission: Plan: opioid use disorder- Continue buprenorphine-naloxone twice daily, confirmed in PDMP Plan Hypomagnesemia- Magnesium 1.5 on admission, replaced with 2 g IV and normal at 2.1 today -normalized Admission and Anticipated Discharge Date Admission Date: September 21, 2023 Subjective withdrawal symptoms improved, still with some anxiety shakes sweats long discussion today about why his abdomen is big, reviewed CT images with him Physical Exam 2 Physical Exam: PHYSICAL EXAMINATION Last 24h vital signs reviewed, see documentation in flowsheet General: comfortable appearing, no distress, sitting up alert in bed HEENT: Normocephalic, atraumatic, pupils round and equal, sclerae anicteric, no conjunctival injection, moist mucus membranes Lungs: Normal respiratory effort. Heart: def Abdomen: protuberant, Soft, nontender, nondistended. Small umbilical hernia, nontender/noninflamed. Extremities: Warm, dry, well-perfused. No extremity edema. Neuro: Alert and oriented x 4, face symmetric, moves 4 extremities well, not tremulous right now Psych: Normal affect and behavior Results & Data Results & Data Vital Signs (Past 12 Hours) Vital Signs Temp Pulse Pulse Resp BP Pulse Ox O2 Del Method 09/24/23 11:33 36.7 C 84 18 120/94 94 Room Air 09/24/23 08:00 100 H 09/24/23 07:52 36.7 C 87 19 127/94 94 Room Air 09/24/23 03:04 37.0 C 96 H 20 133/87 92 Room Air Laboratory Results 09/24/23 05:52 09/24/23 05:52 PG Care Time/CCT Total # of Minutes Spent Total Time Spent with Patient: Total time spent is greater than 50% in coordination of care (as documented) at patient's floor/unit and/or counseling patient: Coding Level of Care Code 30370 SUB INP/OBS CARE 2/35MIN Diagnoses Alcohol withdrawal F10.930 Complication of substance-induced condition: uncomplicated Abnormal LFTs R79.89 Alcohol use disorder, moderate, dependence F10.20 Hepatomegaly R16.0 Tobacco abuse Z72.0 Hepatic steatosis K76.0 Splenomegaly R16.1 Obesities, morbid E66.01 Opioid use disorder in remission F11.91 (1) Alcohol withdrawal Complication of substance-induced condition: uncomplicated Qualified Code(s): F10.930 - Alcohol use, unspecified with withdrawal, uncomplicated
[2023-09-25] MEDS: THIAMINE HCL 100 MG TAB PO SCH (10:12)
--- NOTE | 2023-09-25 11:08 | Hospitalist Progress Note ---
Date of Service September 25, 2023 Assessment & Plan (1) Alcohol withdrawal: Plan: acute alcohol withdrawal Continues to improve, minimal tremors on exam continue monitoring AWSS, as needed lorazepam p.o. continue clonidine but taper to 0.1 bid cont gabapentin 600 mg tid thiamine to po K, mag wnl today reviewed PDMP and notable for outpatient prescriptions for diazepam, most recently 09/07: 2 mg tablets #14, appears his primary care clinic has been tapering him off. He says that clinic won't fill BZD prescriptions for him any longer and that he would need to see a psychiatrist. encouraged him to establish with mental health provider to treat his anxiety, po ssible depression counseled alcohol cessation, quit resources have been provided by [facility] [place] (2) Abnormal LFTs: Plan: admission labs: AST 464, ALT 248, alkaline phosphatase 213 and total bilirubin 1.9, INR 1.0 alcoholic hepatitis based on labs, appears relatively mild at this time - discussed this with him and counseled effects of alcohol on his liver 09/22, 09/23 - 09/23 bilirubin AST/ALT/Alk phos improved - supportive care, alcohol abstinence (3) Alcohol use disorder, moderate, dependence: Plan: states he intends to quit drinking and plans to attend meetings following this hospitalization - counseled with respect to alcohol cessation, effects of excessive alcohol on his health especially his liver (4) Hepatomegaly: Plan: hepatosplenomegaly related to alcoholic liver disease (5) Tobacco abuse: Plan: Tobacco abuse- nicotine patch Tobacco cessation counseling (6) Splenomegaly: Plan: related to alcoholic liver disease mild thrombocytopenia 09/22 splenomegaly and/or toxic effect of alcohol on bone marrow (7) Opioid use disorder in remission: Plan: opioid use disorder- Continue buprenorphine-naloxone twice daily, confirmed in PDMP (8) Hepatic steatosis: (9) Obesities, morbid: Plan: BMI 44.9 Plan Hopefully discharge home today Admission and Anticipated Discharge Date Admission Date: September 21, 2023 Subjective Seen and examined today, says he wants to go home but would like to go home with a few tablets of benzodiazepines, which is outpatient PCP has been trying to taper off. He has been recommended to consult to psychiatry as outpatient. Review of Systems Review of Systems: All systems reviewed are negative, apart from the ones contained in the history. Physical Exam Physical Exam: The patient is awake, alert and oriented 3, well developed and well nourished, normocephalic and atraumatic, lying in bed and in no acute distress. HEENT--PERRL, EOMI, mucous membranes and oropharynx mildly dry Neck--supple. No JVD. No bruits. Thyroid normal, trachea midline, no adenopathy. Heart--normal S1 and S2. No murmurs, rubs or gallops. Lungs--clear bilaterally, no respiratory distress, no accessory muscle use. Abdomen--normal bowel sounds and soft. Extremities--no cyanosis or clubbing. No edema. Dermatologic--normal skin turgor, normal color, no abnormal lymph nodes, no rash. Neurologic--cranial nerves II through XII grossly intact. Rheumatologic--normal range of motion. Psychiatric--normal affect. Results & Data Results & Data Vital Signs (Past 12 Hours) Vital Signs Temp Pulse Pulse Resp BP Pulse Ox O2 Del Method 09/25/23 08:00 Room Air 09/25/23 07:41 98.2 F 91 H 18 144/95 H 91 Room Air 09/25/23 07:00 88 09/25/23 02:45 97.7 F 91 H 18 139/97 94 Room Air 09/24/23 23:17 110 H PG Care Time/CCT Total # of Minutes Spent Total Time Spent with Patient: Total time spent is greater than 50% in coordination of care (as documented) at patient's floor/unit and/or counseling patient: Coding Level of Care Code 11538 SUB INP/OBS CARE 2/35MIN Diagnoses Alcohol withdrawal F10.930 Complication of substance-induced condition: uncomplicated Abnormal LFTs R79.89 Alcohol use disorder, moderate, dependence F10.20 Hepatomegaly R16.0 Tobacco abuse Z72.0 Splenomegaly R16.1 Opioid use disorder in remission F11.91 Hepatic steatosis K76.0 Obesities, morbid E66.01 Time Spent (min) 35 (1) Alcohol withdrawal Complication of substance-induced condition: uncomplicated Qualified Code(s): F10.930 - Alcohol use, unspecified with withdrawal, uncomplicated
[2023-09-26 06:39] LABS: BUN Creatinine Ratio 9.8 (10-20); Calcium 8.3 mg/dl (8.6-10.3); Creatinine Clr Calc Pharmacy 193.5 ml/min; Est GFR (African American) 128.2 ml/min; Est GFR (Non-African American) 110.6 ml/min; Potassium 3.9 mmol/L (3.5-5.1)
[2023-09-26] MEDS: LORazepam 1 MG TAB PO STA (09:56)
--- NOTE | 2023-09-26 10:42 | Discharge Summary ---
Date of Service September 26, 2023 Admission HPI Per Admitting Provider The patient is a 38-year-old male with a past medical history including alcohol use disorder, morbid obesity, tobacco abuse, opioid use disorder in remission, history of bath salt overdose and anxiety. He presents to the emergency department with concerns regarding alcohol withdrawal, averaging 12 beers daily over the past 6 months, with no intake for about 24 hours at this time. He is also concerned about increasing abdominal size, but denies any nausea or vomiting. Principal Diagnosis alcohol withdrawal Discharge Exam The patient is awake, alert and oriented 3, well developed and well nourished, normocephalic and atraumatic, lying in bed and in no acute distress. HEENT--PERRL, EOMI, mucous membranes and oropharynx mildly dry Neck--supple. No JVD. No bruits. Thyroid normal, trachea midline, no adenopathy. Heart--normal S1 and S2. No murmurs, rubs or gallops. Lungs--clear bilaterally, no respiratory distress, no accessory muscle use. Abdomen--normal bowel sounds and soft. Extremities--no cyanosis or clubbing. No edema. Dermatologic--normal skin turgor, normal color, no abnormal lymph nodes, no r briana. Neurologic--cranial nerves II through XII grossly intact. Rheumatologic--normal range of motion. Psychiatric--normal affect. Discharge Data Allergies Allergy/AdvReac Type Severity Reaction Status Date / Time No Known Allergies Allergy Unverified 09/21/23 19:48 Consultations 09/21/23 19:39 ED Decision to Admit Stat Ordered Studies 09/21/23 16:22 CT abd pelvis IV con only Stat CT angio chest PE protocol Stat Hospital Course (1) Alcohol withdrawal: acute alcohol withdrawal Continues to improve, minimal tremors on exam continue monitoring AWSS, as needed lorazepam p.o. thiamine to po K, mag wnl today reviewed PDMP and notable for outpatient prescriptions for diazepam, most recently 09/07: 2 mg tablets #14, appears his primary care clinic has been tapering him off. He says that clinic won't fill BZD prescriptions for him any longer and that he would need to see a psychiatrist. encouraged him to establish with mental health provider to treat his anxiety, possible depression counseled alcohol cessation, quit resources have been provided by [facility] will not send him home on Benzos Also encouraged him to make appointment to follow up with Psychiatry, he verbalized understanding and agreed (2) Abnormal LFTs: admission labs: AST 464, ALT 248, alkaline phosphatase 213 and total bilirubin 1.9, INR 1.0 alcoholic hepatitis based on labs, appears relatively mild at this time - discussed this with him and counseled effects of alcohol on his liver 09/22, 09/23 - 09/23 bilirubin AST/ALT/Alk phos improved - supportive care, alcohol abstinence (3) Alcohol use disorder, moderate, dependence: states he intends to quit drinking and plans to attend meetings following this hospitalization - counseled with respect to alcohol cessation, effects of excessive alcohol on his health especially his liver (4) Hepatomegaly: hepatosplenomegaly related to alcoholic liver disease (5) Tobacco abuse: Tobacco abuse- nicotine patch Tobacco cessation counseling (6) Splenomegaly: related to alcoholic liver disease mild thrombocytopenia 09/22 splenomegaly and/or toxic effect of alcohol on bone marrow (7) Opioid use disorder in remission: opioid use disorder- Continue buprenorphine-naloxone twice daily, confirmed in PDMP (8) Hepatic steatosis: (9) Obesities, morbid: BMI 44.9 Plan Hopefully discharge home today Total Time Total Time Spent Total Time Spent (In Minutes): 35 Discharge Plan Discharge Items Patient Disposition: Home - Self-Care Reason For Visit: ALCOHOL WITHDRAWAL Discharge Diagnosis: alcohol abuse and withdrawal Condition on Discharge: Fair Activity: Resume your previous activity Non-emergency contact: Primary Care Provider and Psychiatrist Call non-emergency contact if: you have any medication questions Follow-up/Referrals: Sherry Kimble CRNP [Primary Care Provider] - Diet: Regular Addtl Attending Provider Instructions: please make appointment to follow up with a psychiatrist Dr Obrien for your depression and addiction Pending Studies at Discharge: No Stand-Alone Forms: My [facility], Smoking Cessation Medications and DC Order Prescriptions: New thiamine HCl (vitamin B1) 100 mg Tablet 100 mg PO QAM 30 Days Qty: 30 0RF folic acid 1 mg tablet 1 mg PO DAILY Qty: 30 0RF Continued buprenorphine-naloxone 8-2 mg tablet, sublingual 0.5 tab SUBLINGUAL BID Discharge Orders: Discharge Order (Routine); Ordered 09/26/23 Ordered By: Kareen Rao Admission Data Admit Date/Time: 09/21/23 20:25 Attending Provider: Kareen Rao Admit Provider: Jae Reyes Primary Care Provider: Sherry Kimble Other Providers: Jae Reyes Coding Level of Care Code 99113 INP/OBS DISCH >30 MIN Diagnoses Alcohol withdrawal F10.930 Complication of substance-induced condition: uncomplicated Abnormal LFTs R79.89 Alcohol use disorder, moderate, dependence F10.20 Hepatomegaly R16.0 Tobacco abuse Z72.0 Splenomegaly R16.1 Opioid use disorder in remission F11.91 Hepatic steatosis K76.0 Obesities, morbid E66.01 Time Spent (min) 35
== END 2023-09-26 11:42 | disposition home or self-care (01) | DRG 897 ==
LOC: ED 15:10 → 2E 20:25 → SUATTDRO 20:25 → 2E 21:05